=== PATIENT | female | born 1935 | race Caucasian/White ===

== ENCOUNTER 2017-04-27 18:07 | Observation (INO) | payer MEDICARE, BC ==
--- NOTE | 2017-04-27 18:55 | EDM.PDOC ---
ED HPI GENERAL MEDICAL PROBLEM - General Chief Complaint: General Stated Complaint: Low potassium Time Seen by Provider: 04/27/17 18:28 Source of Information: Reports: Patient History Limitations: Reports: No Limitations - History of Present Illness INITIAL COMMENTS - FREE TEXT/NARRATIVE: Radha is an 82 yo female who presents to the ER, accompanied by her daughter, with concerns of a low potassium. She states she had laboratory work by Dr. Bearden, her diabetic specialist today and he called stating her potassium was really low and she needed to go to the ER. She states she is feeling well and was shocked when he told her she needed to go to the ER. She currently takes potassium twice a day. She admits over the last month or so she has been seeing a audit analyst and she is taking Lasix a couple times a day as well. Her daughter admits up until seeing nephrology she would never take her water pill because of having to void and incontinence all the time. - Related Data Allergies Allergy/AdvReac Type Severity Reaction Status Date / Time codeine Allergy Hallucinati Verified 01/09/15 12:16 ons cyclobenzaprine HCl Allergy Cannot Verified 01/09/15 12:16 [From Flexeril] Remember fentanyl Allergy Cannot Verified 01/09/15 12:16 Remember hydrocodone Allergy Hallucinati Verified 01/09/15 12:16 ons oxycodone Allergy Hallucinati Verified 01/09/15 12:16 ons penicillin Allergy Hives Verified 01/09/15 12:16 venlafaxine [From Effexor] Allergy Confusion Verified 04/27/17 18:17 Home Meds: Home Meds Aspirin 1 tab PO ASDIRECTED 12/29/14 [History] Cholecalciferol (Vitamin D3) [Vitamin D3] 1 tab PO DAILY 12/29/14 [History] Clopidogrel Bisulfate [Clopidogrel] 1 tab PO DAILY 12/29/14 [History] Clorazepate [Clorazepate Dipotassium] 0.5 - 1 tab PO ASDIRECTED PRN 12/29/14 [ History] Febuxostat [Uloric] 1 tab PO DAILY 12/29/14 [History] Furosemide 2 tab PO QAM 12/29/14 [History] Glucosamine [Glucosamine Sulfate] 1 tab PO DAILY 12/29/14 [History] Lovastatin 1 tab PO DAILY 12/29/14 [History] Lutein [Natural Lutein] 1 cap PO DAILY 12/29/14 [History] Metoprolol Tartrate [Lopressor] 1 tab PO BID 12/29/14 [History] Vitamin B Complex 1 tab PO DAILY 12/29/14 [History] buPROPion [buPROPion XL] 1 tab PO DAILY 12/29/14 [History] Metolazone 5 mg PO ASDIRECTED PRN 01/09/15 [History] Pregabalin [Lyrica] 50 mg PO BID 01/09/15 [History] Insulin Aspart Protam & Aspart [Novolog Mix 70-30 Flexpen Syrn] 30 units SQ BIDPC #0 01/14/15 [Rx] Insulin Aspart [Novolog] 100 unit SQ TIDMEALS #3 ml 01/14/15 [Rx] Potassium Chloride [Klor-Con 10] 20 meq PO BIDMEALS #60 tab.er 01/14/15 [Rx] Past Medical History HEENT History: Reports: Impaired Vision Other HEENT History: glasses, 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 Cardiovascular History: Reports: Heart Failure, High Cholesterol Gastrointestinal History: Reports: Other (See Below) Other Gastrointestinal History: constipation Genitourinary History: Reports: Urinary Incontinence CASH CHECKER History: Reports: Other OB/BYN History: hysterectomy Musculoskeletal History: Reports: Back Pain, Chronic Endocrine/Metabolic History: Reports: Diabetes, Type II Other Endocrine/Metabolic History: 41 BMI Other Dermatologic History: blotchy arms - Past Surgical History GI Surgical History: Reports: Appendectomy, Cholecystectomy, Colonoscopy Musculoskeletal Surgical History: Reports: Other (See Below) Other Musculoskeletal Surgeries/Procedures:: Screws/plates for degenerative disk disease Social & Family History - Family History Family Medical History: Noncontributory - Tobacco Use Smoking Status *Q: Unknown Ever Smoked Second Hand Smoke Exposure: No - Recreational Drug Use Recreational Drug Use: No ED ROS GENERAL - Review of Systems Review Of Systems: See Below Constitutional: Reports: Fatigue. Denies: Fever, Chills, Weakness HEENT: Reports: No Symptoms Respiratory: Denies: Shortness of Breath, Wheezing, Cough Cardiovascular: Reports: Edema. Denies: Chest Pain, Dyspnea on Exertion, Lightheadedness, Palpitations Endocrine: Reports: No Symptoms GI/Abdominal: Denies: Abdominal Pain, Constipation, Diarrhea, Decreased Appetite , Hematochezia, Nausea, Vomiting : Reports: Incontinence. Denies: Discharge, Frequency, Hematuria, Urgency Skin: Reports: No Symptoms Neurological: Denies: Dizziness, Headache, Numbness, Tingling, Weakness Psychiatric: Reports: No Symptoms ED EXAM, GENERAL - Physical Exam Exam: See Below Exam Limited By: No Limitations General Appearance: Alert, No Apparent Distress (sitting comfortably, having normal conversation ) Ears: Normal External Exam, Normal Canal, Hearing Grossly Normal, Normal TMs Nose: Normal Inspection, No Blood Throat/Mouth: Normal Inspection, Normal Teeth, Normal Gums, Normal Oropharynx, No Airway Compromise Head: Atraumatic, Normocephalic Neck: Normal Inspection, Supple Respiratory/Chest: No Respiratory Distress, Lungs Clear, Normal Breath Sounds, No Accessory Muscle Use Cardiovascular: Regular Rate, Rhythm, No Murmur GI/Abdominal: Normal Bowel Sounds, Soft, Non-Tender, No Distention, Other (obese ) Extremities: Pedal Edema (1+ bilaterally) Neurological: Alert, Oriented, Normal Cognition Psychiatric: Normal Affect, Normal Mood Skin Exam: Warm, Dry, Intact Course - Vital Signs Last Recorded V/S: Last Vital Signs Temp 97.5 F 04/27/17 18:08 Pulse 81 04/27/17 18:08 Resp 18 04/27/17 18:08 BP 204/58 H 04/27/17 18:08 Pulse Ox BP @1903 was 162/64 - Orders/Labs/Meds Orders: Active Orders 24 hr Category Date Time Status Patient Status Manage Transfer [TRANSFER] Routine ADT 04/27/17 19:06 Ordered Resuscitation Status Routine Resus Stat 04/27/17 19:06 Ordered Departure - Departure Time of Disposition: 18:59 Disposition: Refer to Observation Clinical Impression: Hypokalemia, Chronic kidney disease (CKD) - Discharge Information Forms: ED Department Discharge - Problem List & Annotations (1) Chronic kidney disease (CKD) SNOMED Code(s): 440735401 Code(s): N18.9 - CHRONIC KIDNEY DISEASE, UNSPECIFIED Status: Chronic Priority: High Current Visit: Yes Qualifiers: Chronic kidney disease stage: stage 4 (severe) Qualified Code(s): N18.4 - Chronic kidney disease, stage 4 (severe) (2) Hypokalemia SNOMED Code(s): 19639999 Code(s): E87.6 - HYPOKALEMIA Status: Acute Current Visit: Yes - Problem List Review Problem List Initiated/Reviewed/Updated: Yes - My Orders Last 24 Hours: My Active Orders 04/27/17 19:06 Patient Status Manage Transfer [TRANSFER] Routine Resuscitation Status Routine - Assessment/Plan Admission H&P: Please use this note as an admission H&P Last 24 Hours: My Active Orders 04/27/17 19:06 Patient Status Manage Transfer [TRANSFER] Routine Resuscitation Status Routine Plan: Consulted with Dr. Dudley and Sugey Casiano in regards to Radha's condition. Will admit to Dr. Dudley's services under observation secondary to her Potassium level , which Dr. Dudley was in agreement. Will hold Lasix tonight and repeat P8 in am. Will proceed with magnesium level tonight as well.
[2017-04-27] MEDS ORDERED: Acetaminophen 325 MG Tab PO PRN (19:22)
[2017-04-27] MEDS ORDERED: Enoxaparin 30 MG/0.3 ML Syringe SUBCUT SCH (20:00)
[2017-04-27] MEDS: Metoprolol Tartrate 25 MG Tab PO SCH (21:48)
[2017-04-27] MEDS: Pregabalin 50 MG Cap PO SCH (21:48)
[2017-04-27] MEDS ORDERED: Potassium Chloride 40 MEQ in Premix Bag 1 BAG IV ONE (22:16)
[2017-04-27] MEDS ORDERED: Sodium Chloride 0.9% 1,000 ML IV SCH (22:30)
[2017-04-27] MEDS ORDERED: Insulin Detemir 100 Units/ML 3 ML Pen SUBCUT SCH (23:00)
[2017-04-28] MEDS ORDERED: Insuln Aspart Prot/Insulin Aspart 100 Units/ML 3 ML FlexPen SUBCUT SCH (07:30)
[2017-04-28] MEDS ORDERED: Aspirin 81 MG Tab.Chew PO SCH (08:00)
[2017-04-28] MEDS ORDERED: Insulin Aspart 100 Units/ML 3 ML Pen SUBCUT SCH (08:00)
[2017-04-28] MEDS ORDERED: Clopidogrel 75 MG Tab PO SCH (08:00)
[2017-04-28] MEDS ORDERED: buPROPion 150 MG Tab.ER PO SCH (08:00)
[2017-04-28] MEDS ORDERED: Potassium Chloride 10 MEQ Tab.ER PO SCH ×2 (08:00)
[2017-04-28] MEDS ORDERED: Non-Formulary Medication 1 Each (Potassium Chloride [Potassium Chloride] 20 MEQ) PO SCH (08:00)
[2017-04-28 08:21] VITALS: BP 182/65
[2017-04-28] MEDS: Metoprolol Tartrate 25 MG Tab PO SCH (09:09)
[2017-04-28] MEDS: Pregabalin 50 MG Cap PO SCH (09:10)
--- NOTE | 2017-04-28 21:17 | PCM.PN ---
- General Info Date of Service: 04/28/17 Admission Dx/Problem (Free Text): hypokalemia Acute on chronic renal failure Functional Status: Reports: Pain Controlled, Tolerating Diet, Ambulating, Urinating - Review of Systems General: Denies: Fever, Weakness, Fatigue HEENT: Reports: No Symptoms Pulmonary: Denies: Shortness of Breath, Cough Cardiovascular: Reports: Edema. Denies: Chest Pain, Lightheadedness Gastrointestinal: Denies: Abdominal Pain, Nausea, Vomiting Genitourinary: Reports: Frequency Musculoskeletal: Reports: Back Pain (chronic in nature) Skin: Reports: No Symptoms Neurological: Reports: No Symptoms - Patient Data Vitals - Most Recent: Last Vital Signs Temp 96.5 F 04/28/17 08:00 Pulse 80 04/28/17 09:09 Resp 18 04/28/17 08:00 BP 182/65 H 04/28/17 09:09 Pulse Ox 94 L 04/28/17 08:00 Weight - Most Recent: 210 lb 15.718 oz I&O - Last 24 Hours: Intake & Output 04/28/17 04/28/17 04/28/17 06:59 14:59 22:59 Intake Total 200 Output Total 850 Balance -650 Lab Results Last 24 Hours: Laboratory Results - last 24 hr 04/27/17 04/28/17 04/28/17 Range/Units 20:02 02:45 07:00 Sodium 145 (136-145) mEq/L Potassium 3.5 D (3.5-5.0) mEq/L Chloride 105 (98-106) mEq/L Carbon Dioxide 34 H (21-32) mmol/L BUN 105 H* (7-18) mg/dL Creatinine 3.1 H* (0.6-1.0) mg/dL Est Cr Clr Drug Dosing 10.56 mL/min Estimated GFR (MDRD) 14 L (>=60) mL/min Glucose 211 H D (75-99) mg/dL POC Glucose 229 H (75-105) mg/dl Calcium 8.9 (8.4-10.1) mg/dL Urine Color Yellow (YELLOW) Urine Appearance Clear (CLEAR) Urine pH 6.0 (4.5-8.0) Ur Specific [place] 1.010 (1.003-1.020) Urine Protein Negative (NEGATIVE) mg/dL Urine Glucose (UA) 250 H (NEGATIVE) mg/dL Urine Ketones Negative (NEGATIVE) mg/dL Urine Occult Blood Negative (NEGATIVE) Urine Nitrite Negative (NEGATIVE) Urine Bilirubin Negative (NEGATIVE) Urine Urobilinogen 0.2 (0.2-1.0) EU/dL Ur Leukocyte Esterase Negative (NEGATIVE) Urine RBC Not seen (0-5) /HPF Urine WBC Not seen (0-5) /HPF Ur Squamous Epith Cells Occasional H (NOT SEEN) /HPF 04/28/17 Range/Units 07:47 Sodium (136-145) mEq/L Potassium (3.5-5.0) mEq/L Chloride (98-106) mEq/L Carbon Dioxide (21-32) mmol/L BUN (7-18) mg/dL Creatinine (0.6-1.0) mg/dL Est Cr Clr Drug Dosing mL/min Estimated GFR (MDRD) (>=60) mL/min Glucose (75-99) mg/dL POC Glucose 185 H (75-105) mg/dl Calcium (8.4-10.1) mg/dL Urine Color (YELLOW) Urine Appearance (CLEAR) Urine pH (4.5-8.0) Ur Specific [place] (1.003-1.020) Urine Protein (NEGATIVE) mg/dL Urine Glucose (UA) (NEGATIVE) mg/dL Urine Ketones (NEGATIVE) mg/dL Urine Occult Blood (NEGATIVE) Urine Nitrite (NEGATIVE) Urine Bilirubin (NEGATIVE) Urine Urobilinogen (0.2-1.0) EU/dL Ur Leukocyte Esterase (NEGATIVE) Urine RBC (0-5) /HPF Urine WBC (0-5) /HPF Ur Squamous Epith Cells (NOT SEEN) /HPF Med Orders - Current: Current Medications Discontinued Medications Acetaminophen (Tylenol) 650 mg PO Q4H PRN PRN Reason: Pain (Mild 1-3)/fever Aspirin (Aspirin) 81 mg PO DAILY [facility] Last Admin: 04/28/17 09:09 Dose: 81 mg Bupropion HCl (Wellbutrin Xl) 150 mg PO DAILY [facility] Last Admin: 04/28/17 09:11 Dose: 150 mg Clopidogrel Bisulfate (Plavix) 75 mg PO DAILY [facility] Last Admin: 04/28/17 09:11 Dose: 75 mg Clorazepate Dipotassium (Clorazepate Dipotassium) 1 - 2 mg PO BEDTIME PRN PRN Reason: Anxiety Enoxaparin Sodium (Lovenox) 30 mg SUBCUT Q24H [facility] Last Admin: 04/27/17 21:49 Dose: 30 mg Potassium Chloride 40 meq/ (Sodium Chloride) 1,020 mls @ 100 mls/hr IV ASDIRECTED [facility] Potassium Chloride 40 meq/ (Premix) 100 mls @ 25 mls/hr IV ONETIME ONE Stop: 04/28/17 02:15 Last Admin: 04/27/17 22:58 Dose: 25 mls/hr Sodium Chloride (Normal Saline) 1,000 mls @ 100 mls/hr IV ASDIRECTED [facility] Last Admin: 04/27/17 22:57 Dose: 100 mls/hr Insulin Aspart (Novolog) 0 unit SUBCUT TIDMEALS [facility] PRN Reason: Protocol Last Admin: 04/28/17 08:04 Dose: 2 units Insulin Aspart (Novolog Mix 70-30) 30 unit SUBCUT BIDAC [facility] Insulin Detemir (Levemir) 25 unit SUBCUT BEDTIME [facility] Last Admin: 04/27/17 23:12 Dose: 25 units Metoprolol Tartrate (Lopressor) 25 mg PO BID [facility] Last Admin: 04/28/17 09:09 Dose: 25 mg Non-Formulary Medication (Potassium Chloride [Potassium Chloride]) 20 meq PO DAILY [facility] Potassium Chloride (Klor-Con 10) 20 meq PO BIDMEALS [facility] Potassium Chloride (Klor-Con 10) 20 meq PO DAILY [facility] Last Admin: 04/28/17 09:09 Dose: 20 meq Pregabalin (Lyrica) 50 mg PO BID [facility] Last Admin: 04/28/17 09:10 Dose: 50 mg - Exam General: Alert, Oriented HEENT: Mucous Membr. Moist/[place] Neck: Supple Lungs: Clear to Auscultation, Normal Respiratory Effort Cardiovascular: Regular Rate, Regular Rhythm GI/Abdominal Exam: Normal Bowel Sounds, Soft, Non-Tender Extremities: Pedal Edema (2+) Skin: Warm, Dry Neurological: No New Focal Deficit - Problem List & Annotations (1) Edema SNOMED Code(s): 657527081 Code(s): R60.9 - EDEMA, UNSPECIFIED Status: Acute Priority: High (2) Hypokalemia SNOMED Code(s): 60123194 Code(s): E87.6 - HYPOKALEMIA Status: Acute Priority: High (3) Chronic kidney disease (CKD) SNOMED Code(s): 132947251 Code(s): N18.9 - CHRONIC KIDNEY DISEASE, UNSPECIFIED Status: Acute Priority: High Qualifiers: Chronic kidney disease stage: stage 4 (severe) Qualified Code(s): N18.4 - Chronic kidney disease, stage 4 (severe) - Problem List Review Problem List Initiated/Reviewed/Updated: Yes - My Orders Last 24 Hours: My Active Orders 04/28/17 09:25 Ready for Discharge [RC] PER UNIT ROUTINE - Assessment Assessment:: Hypokalemia Acute on chronic kidney failure - Plan Plan:: Patient feeling good today. States "never had any symptoms yesterday but Dr. Bearden was concerned about her potassium". Patient has had her meds prepackaged now and admits that she has been more compliant with her Lasix, has had a big improvement of the swelling in her legs. However, her potassium has dropped and her creatinine has increased. She denies having any shortness of breath and chest pain. Patient has long history of edema, not elevating her legs, not being compliant with all meds. This has improved due to having her meds packaged by the pharmacy. She is unable to elevate her legs due to back pain. Was admitted and given IV fluids with potassium 40 meq bump. Potassium improved this am to 3.5. Creatinine improved mildly to 3.1.
--- NOTE | 2017-04-28 21:53 | PCM.DCSUM1 ---
Discharge Summary - Hospital Course Free Text/Narrative:: Patient had labs yesterday for her appointment with Dr. Bearden on Wednesday and he called as he "was concerned about her potassium". Patient has had her meds prepackaged now and admits that she has been more compliant with her Lasix, has had a big improvement of the swelling in her legs. However, her potassium has dropped and her creatinine has increased. She denies having any shortness of breath and chest pain. Patient has long history of edema, not elevating her legs, not being compliant with all meds. This has improved due to having her meds packaged by the pharmacy. She is unable to elevate her legs due to back pain. Was admitted and given IV fluids with potassium 40 meq bump. - Discharge Data Discharge Date: 04/28/17 Discharge Disposition: Home, Self-Care 01 Condition: Fair - Discharge Diagnosis/Problem(s) (1) Edema SNOMED Code(s): 000478569 ICD Code: R60.9 - EDEMA, UNSPECIFIED Status: Acute Priority: High (2) Hypokalemia SNOMED Code(s): 81359959 ICD Code: E87.6 - HYPOKALEMIA Status: Acute Priority: High (3) Chronic kidney disease (CKD) SNOMED Code(s): 063934718 ICD Code: N18.9 - CHRONIC KIDNEY DISEASE, UNSPECIFIED Status: Acute Priority: High Qualifiers: Chronic kidney disease stage: stage 4 (severe) Qualified Code(s): N18.4 - Chronic kidney disease, stage 4 (severe) - Patient Summary/Data Complications: none Hospital Course: Patient feeling good today. States "never really had any symptoms" or any changes with the low potassium or increase in creatinine. She was given IV fluids with potassium bump overnight. Has had significant improvement of her edema since she has been compliant with her medications and taking her Lasix twice a day in addition to the metolazone. Patient is unable to lie down or elevate her legs due to back pain so she has a chronic concern with edema. Labs this am show stable potassium now at 3.5. Creatinine improved slightly at 3.1. We will discharge her home on Lasix 80 mg in am, hold the afternoon dose. Hold her Metolazone for now. Follow up in one week with repeat labs. Encouraged her to still see Dr. Bearden on Wednesday for her diabetes. - Patient Instructions Diet: Diabetic Diet Activity: As Tolerated - Discharge Plan Prescriptions/Med Rec: Insulin Glarg,Human.Rec.Analog [LantUS Solostar] 25 units SUBCUT BEDTIME #30 pen Home Medications: Home Meds Aspirin 1 tab PO ASDIRECTED 12/29/14 [History] Clopidogrel Bisulfate [Clopidogrel] 1 tab PO DAILY 12/29/14 [History] Clorazepate [Clorazepate Dipotassium] 0.5 - 1 tab PO ASDIRECTED PRN 12/29/14 [ History] Febuxostat [Uloric] 80 mg PO DAILY 12/29/14 [History] Furosemide 80 mg PO QAM 12/29/14 [History] Lovastatin 1 tab PO DAILY 12/29/14 [History] Lutein [Natural Lutein] 2 tab PO DAILY 12/29/14 [History] Metoprolol Tartrate [Lopressor] 1 tab PO BID 12/29/14 [History] Vitamin B Complex 1 tab PO DAILY 12/29/14 [History] buPROPion [buPROPion XL] 1 tab PO DAILY 12/29/14 [History] Pregabalin [Lyrica] 50 mg PO BEDTIME 01/09/15 [History] Insulin Aspart [Novolog Flexpen] 100 unit SQ TIDMEALS #3 ml 01/14/15 [Rx] Acetaminophen [Tylenol Arthritis] 650 mg PO BID 04/28/17 [History] Cholecalciferol (Vitamin D3) [Vitamin D3] 2,000 unit PO DAILY 04/28/17 [History] Doxazosin [Cardura] 2 mg PO BEDTIME 04/28/17 [History] Insulin Glarg,Human.Rec.Analog [LantUS Solostar] 25 units SUBCUT BEDTIME #30 pen 04/28/17 [Rx] Potassium Chloride 20 meq PO BID #60 04/28/17 [Rx] Sennosides/Docusate Sodium [Stool Softener-Laxative Tablet] 1 each PO BEDTIME [History] hydrALAZINE HCl [Hydralazine HCl] 50 mg PO BID 04/28/17 [History] Forms: ED Department Discharge Referrals: Candace Casiano PA [Primary Care Provider] - (Follow up in one week. Lab prior to appointment) - Discharge Summary/Plan Comment DC Time >30 min.: No Discharge Summary/Plan Comment: Discharge home. Decrease Lasix to 80 mg daily. Hold Metolazone. Increase potassium BID. Repeat labs in one week with follow up appointment. - General Info Date of Service: 04/28/17 Admission Dx/Problem (Free Text: hypokalemia Acute on chronic renal failure Functional Status: Reports: Pain Controlled, Tolerating Diet, Ambulating - Review of Systems General: Denies: Fever, Weakness, Fatigue HEENT: Reports: No Symptoms Pulmonary: Denies: Shortness of Breath, Wheezing Cardiovascular: Reports: Edema. Denies: Chest Pain, Lightheadedness Gastrointestinal: Denies: Abdominal Pain, Nausea, Vomiting Genitourinary: Reports: No Symptoms Musculoskeletal: Reports: Back Pain Skin: Reports: No Symptoms Neurological: Reports: No Symptoms - Patient Data Vitals - Most Recent: Last Vital Signs Temp 96.5 F 04/28/17 08:00 Pulse 80 04/28/17 09:09 Resp 18 04/28/17 08:00 BP 182/65 H 04/28/17 09:09 Pulse Ox 94 L 04/28/17 08:00 Weight - Most Recent: 210 lb 15.718 oz I&O - Last 24 hours: Intake & Output 04/28/17 04/28/17 04/28/17 06:59 14:59 22:59 Intake Total 200 Output Total 850 Balance -650 Lab Results - Last 24 hrs: Laboratory Results - last 24 hr 04/27/17 04/28/17 04/28/17 Range/Units 20:02 02:45 07:00 Sodium 145 (136-145) mEq/L Potassium 3.5 D (3.5-5.0) mEq/L Chloride 105 (98-106) mEq/L Carbon Dioxide 34 H (21-32) mmol/L BUN 105 H* (7-18) mg/dL Creatinine 3.1 H* (0.6-1.0) mg/dL Est Cr Clr Drug Dosing 10.56 mL/min Estimated GFR (MDRD) 14 L (>=60) mL/min Glucose 211 H D (75-99) mg/dL POC Glucose 229 H (75-105) mg/dl Calcium 8.9 (8.4-10.1) mg/dL Urine Color Yellow (YELLOW) Urine Appearance Clear (CLEAR) Urine pH 6.0 (4.5-8.0) Ur Specific [place] 1.010 (1.003-1.020) Urine Protein Negative (NEGATIVE) mg/dL Urine Glucose (UA) 250 H (NEGATIVE) mg/dL Urine Ketones Negative (NEGATIVE) mg/dL Urine Occult Blood Negative (NEGATIVE) Urine Nitrite Negative (NEGATIVE) Urine Bilirubin Negative (NEGATIVE) Urine Urobilinogen 0.2 (0.2-1.0) EU/dL Ur Leukocyte Esterase Negative (NEGATIVE) Urine RBC Not seen (0-5) /HPF Urine WBC Not seen (0-5) /HPF Ur Squamous Epith Cells Occasional H (NOT SEEN) /HPF 04/28/17 Range/Units 07:47 Sodium (136-145) mEq/L Potassium (3.5-5.0) mEq/L Chloride (98-106) mEq/L Carbon Dioxide (21-32) mmol/L BUN (7-18) mg/dL Creatinine (0.6-1.0) mg/dL Est Cr Clr Drug Dosing mL/min Estimated GFR (MDRD) (>=60) mL/min Glucose (75-99) mg/dL POC Glucose 185 H (75-105) mg/dl Calcium (8.4-10.1) mg/dL Urine Color (YELLOW) Urine Appearance (CLEAR) Urine pH (4.5-8.0) Ur Specific [place] (1.003-1.020) Urine Protein (NEGATIVE) mg/dL Urine Glucose (UA) (NEGATIVE) mg/dL Urine Ketones (NEGATIVE) mg/dL Urine Occult Blood (NEGATIVE) Urine Nitrite (NEGATIVE) Urine Bilirubin (NEGATIVE) Urine Urobilinogen (0.2-1.0) EU/dL Ur Leukocyte Esterase (NEGATIVE) Urine RBC (0-5) /HPF Urine WBC (0-5) /HPF Ur Squamous Epith Cells (NOT SEEN) /HPF Med Orders - Current: Current Medications Discontinued Medications Acetaminophen (Tylenol) 650 mg PO Q4H PRN PRN Reason: Pain (Mild 1-3)/fever Aspirin (Aspirin) 81 mg PO DAILY [facility] Last Admin: 04/28/17 09:09 Dose: 81 mg Bupropion HCl (Wellbutrin Xl) 150 mg PO DAILY [facility] Last Admin: 04/28/17 09:11 Dose: 150 mg Clopidogrel Bisulfate (Plavix) 75 mg PO DAILY [facility] Last Admin: 04/28/17 09:11 Dose: 75 mg Clorazepate Dipotassium (Clorazepate Dipotassium) 1 - 2 mg PO BEDTIME PRN PRN Reason: Anxiety Enoxaparin Sodium (Lovenox) 30 mg SUBCUT Q24H [facility] Last Admin: 04/27/17 21:49 Dose: 30 mg Potassium Chloride 40 meq/ (Sodium Chloride) 1,020 mls @ 100 mls/hr IV ASDIRECTED [facility] Potassium Chloride 40 meq/ (Premix) 100 mls @ 25 mls/hr IV ONETIME ONE Stop: 04/28/17 02:15 Last Admin: 04/27/17 22:58 Dose: 25 mls/hr Sodium Chloride (Normal Saline) 1,000 mls @ 100 mls/hr IV ASDIRECTED [facility] Last Admin: 04/27/17 22:57 Dose: 100 mls/hr Insulin Aspart (Novolog) 0 unit SUBCUT TIDMEALS [facility] PRN Reason: Protocol Last Admin: 04/28/17 08:04 Dose: 2 units Insulin Aspart (Novolog Mix 70-30) 30 unit SUBCUT BIDAC [facility] Insulin Detemir (Levemir) 25 unit SUBCUT BEDTIME [facility] Last Admin: 04/27/17 23:12 Dose: 25 units Metoprolol Tartrate (Lopressor) 25 mg PO BID [facility] Last Admin: 04/28/17 09:09 Dose: 25 mg Non-Formulary Medication (Potassium Chloride [Potassium Chloride]) 20 meq PO DAILY [facility] Potassium Chloride (Klor-Con 10) 20 meq PO BIDMEALS [facility] Potassium Chloride (Klor-Con 10) 20 meq PO DAILY [facility] Last Admin: 04/28/17 09:09 Dose: 20 meq Pregabalin (Lyrica) 50 mg PO BID [facility] Last Admin: 04/28/17 09:10 Dose: 50 mg - Exam General: Reports: Alert, Oriented HEENT: Reports: Mucous Membr. Moist/[place] Neck: Reports: Supple Lungs: Reports: Clear to Auscultation, Normal Respiratory Effort Cardiovascular: Reports: Regular Rate, Regular Rhythm Extremities: Pedal Edema (2+) Skin: Reports: Warm, Dry Neurological: Reports: No New Focal Deficit *Q Meaningful Use (DIS) - VTE *Q VTE Criteria *Q: - Stroke *Q Stroke Criteria *Q: - AMI *Q AMI Criteria *Q:
== END 2017-04-28 11:30 | disposition home or self-care (01) ==
LOC: CC.ED 18:07 → CC.MS 19:19
PROVIDERS: ADMIT Physician Assistant Medical; ATTEND Family Medicine
DX: R60.9 Edema, unspecified (principal); E87.6 Hypokalemia; E78.00 Pure hypercholesterolemia, unspecified; E11.22 Type 2 diabetes mellitus with diabetic chronic kidney disease; N18.4 Chronic kidney disease, stage 4 (severe); Z79.82 Long term (current) use of aspirin; Z79.4 Long term (current) use of insulin; Z79.899 Other long term (current) drug therapy; Z88.0 Allergy status to penicillin; Z88.8 Allergy status to other drugs, medicaments and biological substances; E11.9 Type 2 diabetes mellitus without complications
CPT/HCPCS: 36415; 80048; 81001; 82962; 83036; 83735; 85025; 93005; 93010; 96361; 96365; 96366; 96372; 99217; 99220; A9270; G0378; J1650; J1815; J3480; J7030; 99285

== ENCOUNTER 2018-02-15 10:57 | Inpatient (IN) | payer MEDICARE, BC ==
[2018-02-15] MEDS ORDERED: Ondansetron 4 MG Tab.DIS PO PRN (11:14)
[2018-02-15] MEDS ORDERED: Sodium Chloride 0.9% 10 ML Syringe FLUSH PRN (11:14)
[2018-02-15] MEDS: Furosemide 40 MG/4 ML VIAL IVPUSH SCH ×2 (13:12→17:43)
[2018-02-15] MEDS: Enoxaparin 30 MG/0.3 ML Syringe SUBCUT SCH (13:12)
[2018-02-15] MEDS: Clindamycin Phosphate in D5W 300 MG in Premix Bag 1 BAG IV SCH ×4 (13:13→17:51)
[2018-02-15] MEDS: Insulin Aspart 100 Units/ML 3 ML Pen SUBCUT SCH (17:51)
[2018-02-15] MEDS: hydrALAZINE 25 MG Tab PO SCH (20:09)
[2018-02-15] MEDS: Doxazosin 2 MG Tab PO SCH (20:09)
[2018-02-15] MEDS: Potassium Chloride 10 MEQ Tab.ER PO SCH (20:09)
[2018-02-15] MEDS: Metoprolol Tartrate 25 MG Tab PO SCH (20:10)
[2018-02-15] MEDS: prednisoLONE Acetate 1% Ophth Susp 5 ML Bottle EYERT SCH (20:10)
[2018-02-15] MEDS: Pregabalin 50 MG Cap PO SCH (20:10)
[2018-02-15] MEDS: Latanoprost 0.005% Ophth Soln 2.5 ML Bottle EYERT SCH (20:47)
[2018-02-15] MEDS: Insulin Detemir 100 Units/ML 3 ML Pen SUBCUT SCH (20:47)
[2018-02-16] MEDS: Clindamycin Phosphate in D5W 300 MG in Premix Bag 1 BAG IV SCH ×8 (00:11→18:27)
[2018-02-16] MEDS: Acetaminophen 325 MG Tab PO PRN (00:13)
[2018-02-16] MEDS: hydrALAZINE 25 MG Tab PO SCH ×2 (07:49→19:50)
[2018-02-16] MEDS: Metoprolol Tartrate 25 MG Tab PO SCH ×2 (07:49→19:51)
[2018-02-16] MEDS: Clopidogrel 75 MG Tab PO SCH (07:50)
[2018-02-16] MEDS: Potassium Chloride 10 MEQ Tab.ER PO SCH ×2 (07:50→19:50)
[2018-02-16] MEDS: Isosorbide Mononitrate 30 MG Tab.ER PO SCH (07:50)
[2018-02-16] MEDS: Allopurinol 100 MG Tab PO SCH (07:50)
[2018-02-16] MEDS: buPROPion 150 MG Tab.ER PO SCH (07:51)
[2018-02-16] MEDS: Cholecalciferol (Vitamin D3) 1,000 Unit Tab PO SCH (07:51)
[2018-02-16] MEDS: Aspirin 81 MG Tab.Chew PO SCH (07:51)
[2018-02-16] MEDS: Insulin Aspart 100 Units/ML 3 ML Pen SUBCUT SCH ×3 (07:53→17:37)
[2018-02-16] MEDS: Furosemide 40 MG/4 ML VIAL IVPUSH SCH ×2 (07:53→17:00)
[2018-02-16] MEDS: prednisoLONE Acetate 1% Ophth Susp 5 ML Bottle EYERT SCH ×3 (07:57→19:54)
[2018-02-16] MEDS: Polyethylene Glycol 3350 Powder 17 GM Packet PO SCH (07:59)
[2018-02-16] MEDS ORDERED: FEBUXOSTAT 80 MG PO SCH (08:00)
[2018-02-16] MEDS: TIMOLOL EYERT SCH ×4 (09:23→20:15)
[2018-02-16] MEDS: CYCLOPENTOLATE 1% EYERT SCH ×4 (09:23→19:45)
[2018-02-16] MEDS: BRIMONIDINE EYERT SCH ×4 (09:23→20:15)
--- NOTE | 2018-02-16 10:49 | PCM.PN ---
- General Info Date of Service: 02/16/18 Admission Dx/Problem (Free Text): Cellulitis of Lower Extremities Pedal Edema Functional Status: Reports: Pain Controlled, Tolerating Diet, Ambulating, Urinating - Review of Systems General: Reports: Weakness, Fatigue. Denies: Fever HEENT: Reports: No Symptoms Pulmonary: Denies: Shortness of Breath, Cough Cardiovascular: Reports: Edema. Denies: Chest Pain, Lightheadedness Gastrointestinal: Denies: Abdominal Pain, Nausea, Vomiting Genitourinary: Reports: No Symptoms Musculoskeletal: Reports: Leg Pain Skin: Reports: Other (legs wrapped with tom bandages.) - Patient Data Vitals - Most Recent: Last Vital Signs Temp 97.5 F 02/16/18 08:00 Pulse 78 02/16/18 08:00 Resp 20 02/16/18 08:00 BP 168/47 H 02/16/18 08:00 Pulse Ox 96 02/16/18 08:00 Weight - Most Recent: 224 lb 3.362 oz I&O - Last 24 Hours: Intake & Output 02/15/18 02/16/18 02/16/18 22:59 06:59 14:59 Intake Total 50 50 Balance 50 50 Lab Results Last 24 Hours: Laboratory Results - last 24 hr 02/15/18 02/15/18 02/15/18 Range/Units 11:35 11:35 11:42 WBC 7.1 (5.0-10.0) 10^3/uL RBC 3.23 L (4.00-5.50) 10^6/uL Hgb 9.9 L (12.0-16.0) g/dL Hct 31.6 L (37.0-47.0) % MCV 97.8 H (82.0-94.0) fL MCH 30.7 (27.0-32.0) pg MCHC 31.3 L (33.0-38.0) g/dL RDW Coeff of Elle 13.5 (11.0-15.0) % Plt Count 174 (150-400) 10^3/uL Neut % (Auto) 67.1 (35-85) % Lymph % (Auto) 19.1 (10-55) % [place] % (Auto) 11.2 (0-16) % Eos % (Auto) 2.5 (0-5) % Baso % (Auto) 0.1 (0-3) % Neut # (Auto) 4.73 (1.80-7.00) 10^3/uL Lymph # (Auto) 1.35 (1.00-4.80) 10^3/uL [place] # (Auto) 0.79 (0.00-0.80) 10^3/uL Eos # (Auto) 0.18 (0.00-0.45) 10^3/uL Baso # (Auto) 0.01 10^3/uL Sodium 143 (136-145) mEq/L Potassium 3.4 L (3.5-5.0) mEq/L Chloride 104 (98-106) mEq/L Carbon Dioxide 30 (21-32) mmol/L BUN 69 H (7-18) mg/dL Creatinine 2.6 H* (0.6-1.0) mg/dL Est Cr Clr Drug Dosing 11.98 mL/min Estimated GFR (MDRD) 18 L (>=60) mL/min Glucose 45 L D (75-99) mg/dL POC Glucose 38 L* (75-105) mg/dl Calcium 8.7 (8.4-10.1) mg/dL C-Reactive Protein 3.6 H (0.2-0.8) mg/dL NT-Pro-B Natriuret Pep 1198 H (0-1000) pg/mL 02/15/18 02/15/18 02/15/18 Range/Units 12:16 17:15 20:28 WBC (5.0-10.0) 10^3/uL RBC (4.00-5.50) 10^6/uL Hgb (12.0-16.0) g/dL Hct (37.0-47.0) % MCV (82.0-94.0) fL MCH (27.0-32.0) pg MCHC (33.0-38.0) g/dL RDW Coeff of Elle (11.0-15.0) % Plt Count (150-400) 10^3/uL Neut % (Auto) (35-85) % Lymph % (Auto) (10-55) % [place] % (Auto) (0-16) % Eos % (Auto) (0-5) % Baso % (Auto) (0-3) % Neut # (Auto) (1.80-7.00) 10^3/uL Lymph # (Auto) (1.00-4.80) 10^3/uL [place] # (Auto) (0.00-0.80) 10^3/uL Eos # (Auto) (0.00-0.45) 10^3/uL Baso # (Auto) 10^3/uL Sodium (136-145) mEq/L Potassium (3.5-5.0) mEq/L Chloride (98-106) mEq/L Carbon Dioxide (21-32) mmol/L BUN (7-18) mg/dL Creatinine (0.6-1.0) mg/dL Est Cr Clr Drug Dosing mL/min Estimated GFR (MDRD) (>=60) mL/min Glucose (75-99) mg/dL POC Glucose 80 211 H 232 H (75-105) mg/dl Calcium (8.4-10.1) mg/dL C-Reactive Protein (0.2-0.8) mg/dL NT-Pro-B Natriuret Pep (0-1000) pg/mL 02/16/18 02/16/18 02/16/18 Range/Units 07:34 08:53 08:53 WBC 5.7 (5.0-10.0) 10^3/uL RBC 3.22 L (4.00-5.50) 10^6/uL Hgb 9.9 L (12.0-16.0) g/dL Hct 32.1 L (37.0-47.0) % MCV 99.7 H (82.0-94.0) fL MCH 30.7 (27.0-32.0) pg MCHC 30.8 L (33.0-38.0) g/dL RDW Coeff of Elle 13.4 (11.0-15.0) % Plt Count 171 (150-400) 10^3/uL Neut % (Auto) 66.9 (35-85) % Lymph % (Auto) 20.4 (10-55) % [place] % (Auto) 9.5 (0-16) % Eos % (Auto) 3.0 (0-5) % Baso % (Auto) 0.2 (0-3) % Neut # (Auto) 3.81 (1.80-7.00) 10^3/uL Lymph # (Auto) 1.16 (1.00-4.80) 10^3/uL [place] # (Auto) 0.54 (0.00-0.80) 10^3/uL Eos # (Auto) 0.17 (0.00-0.45) 10^3/uL Baso # (Auto) 0.01 10^3/uL Sodium 143 (136-145) mEq/L Potassium 4.1 D (3.5-5.0) mEq/L Chloride 104 (98-106) mEq/L Carbon Dioxide 30 (21-32) mmol/L BUN 65 H (7-18) mg/dL Creatinine 2.8 H* (0.6-1.0) mg/dL Est Cr Clr Drug Dosing 11.13 mL/min Estimated GFR (MDRD) 16 L (>=60) mL/min Glucose 181 H D (75-99) mg/dL POC Glucose 153 H (75-105) mg/dl Calcium 8.4 (8.4-10.1) mg/dL C-Reactive Protein 3.9 H (0.2-0.8) mg/dL NT-Pro-B Natriuret Pep (0-1000) pg/mL Attila Results Last 24 Hours: Microbiology 02/15/18 15:15 Wound Culture - Preliminary Ankle, Left Gram Positive Cocci Gram Positive Cocci#2 Gram Negative Rods Med Orders - Current: Current Medications Acetaminophen (Tylenol) 650 mg PO Q4H PRN PRN Reason: Pain (Mild 1-3)/fever Last Admin: 02/16/18 00:13 Dose: 650 mg Allopurinol (Zyloprim) 100 mg PO DAILY [facility] Last Admin: 02/16/18 07:50 Dose: 100 mg Aspirin (Aspirin) 81 mg PO DAILY [facility] Last Admin: 02/16/18 07:51 Dose: 81 mg Bupropion HCl (Wellbutrin Xl) 150 mg PO DAILY [facility] Last Admin: 02/16/18 07:51 Dose: 150 mg Cholecalciferol (Vitamin D3) 2,000 units PO DAILY [facility] Last Admin: 02/16/18 07:51 Dose: 2,000 units Clopidogrel Bisulfate (Plavix) 75 mg PO DAILY [facility] Last Admin: 02/16/18 07:50 Dose: 75 mg Doxazosin Mesylate (Cardura) 2 mg PO BEDTIME [facility] Last Admin: 02/15/18 20:09 Dose: 2 mg Enoxaparin Sodium (Lovenox) 30 mg SUBCUT Q24H [facility] Last Admin: 02/15/18 13:12 Dose: 30 mg Furosemide (Lasix) 40 mg IVPUSH 0800,1600 [facility] Last Admin: 02/16/18 07:53 Dose: 40 mg Hydralazine HCl (Apresoline) 100 mg PO BID [facility] Last Admin: 02/16/18 07:49 Dose: 100 mg Clindamycin Phosphate 300 mg/ (Premix) 50 mls @ 100 mls/hr IV Q6H [facility] Last Admin: 02/16/18 05:57 Dose: 100 mls/hr Insulin Aspart (Novolog) 0 unit SUBCUT TIDMEALS [facility]; Protocol Last Admin: 02/16/18 07:53 Dose: 2 units Insulin Detemir (Levemir) 25 unit SUBCUT BEDTIME [facility] Last Admin: 02/15/18 20:47 Dose: 25 units Isosorbide Mononitrate (Imdur) 30 mg PO DAILY [facility] Last Admin: 02/16/18 07:50 Dose: 30 mg Latanoprost (Xalatan 0.005% Ophth Soln) 0 ml EYERT BEDTIME [facility] Last Admin: 02/15/18 20:47 Dose: 1 drop Metoprolol Tartrate (Lopressor) 25 mg PO BID [facility] Last Admin: 02/16/18 07:49 Dose: 25 mg Brimonidine/Timolol [Combigan] 0.2%/0.5% Ophth Own Med 1 drop EYERT TID [facility] Last Admin: 02/16/18 09:23 Dose: 1 drop Cyclopentolate 1% (Ophth Own Med ) 1 drop EYERT TID [facility] Last Admin: 02/16/18 09:23 Dose: 1 drop Ondansetron HCl (Zofran Odt) 4 mg PO Q4H PRN PRN Reason: nausea, able to take PO Polyethylene Glycol (Miralax) 17 gm PO DAILY [facility] Last Admin: 02/16/18 07:59 Dose: 17 gm Potassium Chloride (Klor-Con 10) 20 meq PO BID [facility] Last Admin: 02/16/18 07:50 Dose: 20 meq Prednisolone Acetate (Pred Forte 1% Ophth Susp) 0 ml EYERT TID [facility] Last Admin: 02/16/18 07:57 Dose: 1 drop Pregabalin (Lyrica) 50 mg PO BEDTIME [facility] Last Admin: 02/15/18 20:10 Dose: 50 mg Senna/Docusate Sodium (Senna Plus) 1 tab PO BEDTIME [facility] Last Admin: 02/15/18 20:09 Dose: 1 tab Simvastatin (Zocor) 20 mg PO BEDTIME [facility] Sodium Chloride (Saline Flush) 10 ml FLUSH ASDIRECTED PRN PRN Reason: Keep Vein Open Discontinued Medications Non-Formulary Medication (Acetaminophen [Tylenol Arthritis]) 650 mg PO BID [facility] - Exam General: Alert, Oriented, Cooperative HEENT: Mucous Membr. Moist/[place] Neck: Supple Lungs: Clear to Auscultation, Normal Respiratory Effort Cardiovascular: Regular Rate, Regular Rhythm GI/Abdominal Exam: Normal Bowel Sounds, Soft, Non-Tender Extremities: Pedal Edema (Patient's edema to lower leg and foot is improved since yesterday but has increased edema above the tom bandage point at midcalf. She continues to have redness and oozing from the open lesions. ) Neurological: No New Focal Deficit - Problem List & Annotations (1) Chronic kidney disease (CKD) SNOMED Code(s): 913758908 Code(s): N18.9 - CHRONIC KIDNEY DISEASE, UNSPECIFIED Status: Acute Priority: High Current Visit: Yes (2) Edema SNOMED Code(s): 369731405, 223236440 Code(s): R60.9 - EDEMA, UNSPECIFIED Status: Acute Priority: High Current Visit: Yes (3) Cellulitis of lower extremity SNOMED Code(s): 722965120 Code(s): L03.119 - CELLULITIS OF UNSPECIFIED PART OF LIMB Status: Suspected Priority: High Current Visit: Yes Qualifiers: Laterality: left Qualified Code(s): L03.116 - Cellulitis of left lower limb - Problem List Review Problem List Initiated/Reviewed/Updated: Yes - My Orders Last 24 Hours: My Active Orders 02/15/18 11:14 Patient Status [ADT] Routine Blood Glucose Check, Bedside [RC] 0730,1130,1730,2100 Height and Weight [RC] 0600 Oxygen Therapy [RC] .PRN Up With Assistance [RC] .PRN Vital Signs [RC] 0000,0400,0800,1200,1600,2000 PT Evaluation and Treatment [CONS] Routine Acetaminophen [Tylenol] 650 mg PO Q4H PRN Ondansetron [Zofran ODT] 4 mg PO Q4H PRN Sodium Chloride 0.9% [Saline Flush] 10 ml FLUSH ASDIRECTED PRN Saline Lock Insert [OM.PC] Routine Resuscitation Status Routine 02/15/18 11:30 Furosemide [Lasix] 40 mg IVPUSH 0800,1600 02/15/18 12:00 Clindamycin Phosphate in D5W [Cleocin in D5W] 300 mg Premix Bag 1 bag IV Q6H Enoxaparin [Lovenox] 30 mg SUBCUT Q24H 02/15/18 15:15 CULTURE WOUND [RM] Stat 02/15/18 17:30 Insulin Aspart [NovoLOG] See Protocol SUBCUT TIDMEALS 02/15/18 20:00 Brimonidine/Timolol [Combigan 0.2%/0.5% Ophth Soln] 1 drop EYERT TID Cyclopentolate HCl [Cyclopentolate HCl] 1 drop EYERT TID Docusate Sodium/Sennosides [Senna Plus] 1 tab PO BEDTIME Doxazosin [Cardura] 2 mg PO BEDTIME Insulin Detemir [Levemir] 25 unit SUBCUT BEDTIME Latanoprost [Xalatan 0.005% Ophth Soln] 0 ml EYERT BEDTIME Metoprolol Tartrate [Lopressor] 25 mg PO BID Potassium Chloride [Klor-Con 10] 20 meq PO BID Pregabalin [Lyrica] 50 mg PO BEDTIME hydrALAZINE [Apresoline] 100 mg PO BID prednisoLONE acetate [Pred Forte 1% Ophth Susp] 0 ml EYERT TID 02/15/18 Lunch 2 Gram Sodium Diet [DIET] 02/16/18 08:00 Allopurinol [Zyloprim] 100 mg PO DAILY Aspirin 81 mg PO DAILY Cholecalciferol (Vitamin D3) [Vitamin D3] 2,000 units PO DAILY Clopidogrel [Plavix] 75 mg PO DAILY Isosorbide Mononitrate [Imdur] 30 mg PO DAILY Polyethylene Glycol 3350 [MiraLAX] 17 gm PO DAILY buPROPion [Wellbutrin XL] 150 mg PO DAILY 02/16/18 20:00 Simvastatin [Zocor] 20 mg PO BEDTIME 02/17/18 05:11 BASIC METABOLIC PANEL,BMP [CHEM] DAILY C-REACTIVE PROTEIN [CHEM] DAILY 02/18/18 05:11 BASIC METABOLIC PANEL,BMP [CHEM] DAILY C-REACTIVE PROTEIN [CHEM] DAILY - Assessment Assessment:: Cellulitis of bilateral lower extremities Edema Chronic Kidney Failure. - Plan Plan:: Patient is up and resting in recliner. Has been willing to elevate her feet but she does not lay in the bed at all. Edema is improved in feet and ankle region but has more now above the level of the tom bandage to mid carvajal region. Still has redness and oozing from the open lesions. No fevers. Has been up and voiding more since IV Lasix given yesterday. Lung sounds are clear. Creatinine increased slightly to 2.8 from 2.6 yesterday. ProBNP was 1198 yesterday. WBC stable at 5.7. CRP 3.9. Will continue with IV Cleocin. Elevate legs. Suggest UNNA boots or higher wraps with the tom bandages. Encourage ambulation. Repeat labs in am.
[2018-02-16] MEDS: Non-Formulary Medication 1 Each (Acetaminophen [Tylenol Arthritis] 650 MG) PO SCH (11:30)
[2018-02-16] MEDS: Enoxaparin 30 MG/0.3 ML Syringe SUBCUT SCH (11:38)
[2018-02-16] MEDS: Pregabalin 50 MG Cap PO SCH (19:50)
[2018-02-16] MEDS: Doxazosin 2 MG Tab PO SCH (19:50)
[2018-02-16] MEDS: Simvastatin 20 MG Tab PO SCH (19:51)
[2018-02-16] MEDS: Insulin Detemir 100 Units/ML 3 ML Pen SUBCUT SCH (20:38)
[2018-02-16] MEDS: Latanoprost 0.005% Ophth Soln 2.5 ML Bottle EYERT SCH (20:38)
[2018-02-17] MEDS: Acetaminophen 325 MG Tab PO PRN ×2 (00:19→20:35)
[2018-02-17] MEDS: Clindamycin Phosphate in D5W 300 MG in Premix Bag 1 BAG IV SCH ×4 (00:19→05:38)
[2018-02-17] MEDS: Potassium Chloride 10 MEQ Tab.ER PO SCH ×2 (08:20→20:33)
[2018-02-17] MEDS: hydrALAZINE 25 MG Tab PO SCH ×2 (08:20→20:32)
[2018-02-17] MEDS: buPROPion 150 MG Tab.ER PO SCH (08:20)
[2018-02-17] MEDS: Clopidogrel 75 MG Tab PO SCH (08:20)
[2018-02-17] MEDS: Metoprolol Tartrate 25 MG Tab PO SCH ×2 (08:20→20:34)
[2018-02-17] MEDS: Cholecalciferol (Vitamin D3) 1,000 Unit Tab PO SCH (08:20)
[2018-02-17] MEDS: Allopurinol 100 MG Tab PO SCH (08:21)
[2018-02-17] MEDS: Aspirin 81 MG Tab.Chew PO SCH (08:21)
[2018-02-17] MEDS: Furosemide 40 MG/4 ML VIAL IVPUSH SCH ×2 (08:21→17:10)
[2018-02-17] MEDS: Isosorbide Mononitrate 30 MG Tab.ER PO SCH (08:21)
[2018-02-17] MEDS: Polyethylene Glycol 3350 Powder 17 GM Packet PO SCH (08:21)
[2018-02-17] MEDS: BRIMONIDINE EYERT SCH ×3 (08:22→20:10)
[2018-02-17] MEDS: TIMOLOL EYERT SCH ×3 (08:22→20:10)
[2018-02-17] MEDS: CYCLOPENTOLATE 1% EYERT SCH ×3 (08:22→20:00)
[2018-02-17] MEDS: prednisoLONE Acetate 1% Ophth Susp 5 ML Bottle EYERT SCH ×3 (08:23→20:25)
[2018-02-17] MEDS: Insulin Aspart 100 Units/ML 3 ML Pen SUBCUT SCH ×3 (08:23→17:38)
--- NOTE | 2018-02-17 10:35 | PCM.PN ---
- General Info Date of Service: 02/17/18 Admission Dx/Problem (Free Text): Cellulitis of Lower Extremities Pedal Edema Functional Status: Reports: Pain Controlled, Tolerating Diet, Ambulating - Review of Systems General: Reports: Weakness. Denies: Fever HEENT: Reports: No Symptoms Pulmonary: Denies: Shortness of Breath, Cough Cardiovascular: Reports: Edema. Denies: Chest Pain, Lightheadedness Gastrointestinal: Denies: Abdominal Pain, Nausea, Vomiting Genitourinary: Reports: No Symptoms Musculoskeletal: Reports: Leg Pain Skin: Reports: Other (wounds to lower extremities) Neurological: Reports: No Symptoms - Patient Data Vitals - Most Recent: Last Vital Signs Temp 98.6 F 02/17/18 08:00 Pulse 86 02/17/18 08:20 Resp 18 02/17/18 08:00 BP 196/51 H 02/17/18 08:20 Pulse Ox 94 L 02/17/18 08:00 Weight - Most Recent: 224 lb 3.362 oz I&O - Last 24 Hours: Intake & Output 02/16/18 02/17/18 02/17/18 22:59 06:59 14:59 Intake Total 50 50 Balance 50 50 Lab Results Last 24 Hours: Laboratory Results - last 24 hr 02/16/18 02/16/18 02/16/18 Range/Units 11:21 17:18 20:26 Sodium (136-145) mEq/L Potassium (3.5-5.0) mEq/L Chloride (98-106) mEq/L Carbon Dioxide (21-32) mmol/L BUN (7-18) mg/dL Creatinine (0.6-1.0) mg/dL Est Cr Clr Drug Dosing mL/min Estimated GFR (MDRD) (>=60) mL/min Glucose (75-99) mg/dL POC Glucose 199 H 234 H 259 H (75-105) mg/dl Calcium (8.4-10.1) mg/dL C-Reactive Protein (0.2-0.8) mg/dL 02/17/18 02/17/18 Range/Units 07:22 07:38 Sodium 145 (136-145) mEq/L Potassium 4.1 (3.5-5.0) mEq/L Chloride 105 (98-106) mEq/L Carbon Dioxide 30 (21-32) mmol/L BUN 63 H (7-18) mg/dL Creatinine 2.6 H* (0.6-1.0) mg/dL Est Cr Clr Drug Dosing 11.98 mL/min Estimated GFR (MDRD) 18 L (>=60) mL/min Glucose 144 H (75-99) mg/dL POC Glucose 142 H (75-105) mg/dl Calcium 8.5 (8.4-10.1) mg/dL C-Reactive Protein 3.1 H (0.2-0.8) mg/dL Attila Results Last 24 Hours: Microbiology 02/15/18 15:15 Wound Culture - Final Ankle, Left Staphylococcus Aureus Pseudomonas Aeruginosa Med Orders - Current: Current Medications Acetaminophen (Tylenol) 650 mg PO Q4H PRN PRN Reason: Pain (Mild 1-3)/fever Last Admin: 02/17/18 00:19 Dose: 650 mg Allopurinol (Zyloprim) 100 mg PO DAILY [facility] Last Admin: 02/17/18 08:21 Dose: 100 mg Aspirin (Aspirin) 81 mg PO DAILY [facility] Last Admin: 02/17/18 08:21 Dose: 81 mg Bupropion HCl (Wellbutrin Xl) 150 mg PO DAILY [facility] Last Admin: 02/17/18 08:20 Dose: 150 mg Cholecalciferol (Vitamin D3) 2,000 units PO DAILY [facility] Last Admin: 02/17/18 08:20 Dose: 2,000 units Clopidogrel Bisulfate (Plavix) 75 mg PO DAILY [facility] Last Admin: 02/17/18 08:20 Dose: 75 mg Doxazosin Mesylate (Cardura) 2 mg PO BEDTIME [facility] Last Admin: 02/16/18 19:50 Dose: 2 mg Enoxaparin Sodium (Lovenox) 30 mg SUBCUT Q24H [facility] Last Admin: 02/16/18 11:38 Dose: 30 mg Furosemide (Lasix) 40 mg IVPUSH 0800,1600 [facility] Last Admin: 02/17/18 08:21 Dose: 40 mg Hydralazine HCl (Apresoline) 100 mg PO BID [facility] Last Admin: 02/17/18 08:20 Dose: 100 mg Levofloxacin/Dextrose 250 mg/ (Premix) 50 mls @ 50 mls/hr IV Q24H [facility] Insulin Aspart (Novolog) 0 unit SUBCUT TIDMEALS [facility]; Protocol Last Admin: 02/17/18 08:23 Dose: Not Given Insulin Detemir (Levemir) 25 unit SUBCUT BEDTIME [facility] Last Admin: 02/16/18 20:38 Dose: 25 units Isosorbide Mononitrate (Imdur) 30 mg PO DAILY [facility] Last Admin: 02/17/18 08:21 Dose: 30 mg Latanoprost (Xalatan 0.005% Ophth Soln) 0 ml EYERT BEDTIME [facility] Last Admin: 02/16/18 20:38 Dose: 1 drop Metoprolol Tartrate (Lopressor) 25 mg PO BID [facility] Last Admin: 02/17/18 08:20 Dose: 25 mg Brimonidine/Timolol [Combigan] 0.2%/0.5% Ophth Own Med 1 drop EYERT TID [facility] Last Admin: 02/17/18 08:22 Dose: 1 drop Cyclopentolate 1% (Ophth Own Med ) 1 drop EYERT TID [facility] Last Admin: 02/17/18 08:22 Dose: 1 drop Ondansetron HCl (Zofran Odt) 4 mg PO Q4H PRN PRN Reason: nausea, able to take PO Polyethylene Glycol (Miralax) 17 gm PO DAILY [facility] Last Admin: 02/17/18 08:21 Dose: 17 gm Potassium Chloride (Klor-Con 10) 20 meq PO BID [facility] Last Admin: 02/17/18 08:20 Dose: 20 meq Prednisolone Acetate (Pred Forte 1% Ophth Susp) 0 ml EYERT TID [facility] Last Admin: 02/17/18 08:23 Dose: 1 drop Pregabalin (Lyrica) 50 mg PO BEDTIME [facility] Last Admin: 02/16/18 19:50 Dose: 50 mg Senna/Docusate Sodium (Senna Plus) 1 tab PO BEDTIME [facility] Last Admin: 02/16/18 19:51 Dose: 1 tab Simvastatin (Zocor) 20 mg PO BEDTIME [facility] Last Admin: 02/16/18 19:51 Dose: 20 mg Sodium Chloride (Saline Flush) 10 ml FLUSH ASDIRECTED PRN PRN Reason: Keep Vein Open Discontinued Medications Clindamycin Phosphate 300 mg/ (Premix) 50 mls @ 100 mls/hr IV Q6H [facility] Last Admin: 02/17/18 05:38 Dose: 100 mls/hr Non-Formulary Medication (Acetaminophen [Tylenol Arthritis]) 650 mg PO BID [facility] Last Admin: 02/16/18 11:30 Dose: Not Given - Exam General: Alert, Oriented HEENT: Mucous Membr. Moist/[place] Neck: Supple Lungs: Clear to Auscultation, Normal Respiratory Effort Cardiovascular: Regular Rate, Regular Rhythm GI/Abdominal Exam: Normal Bowel Sounds, Soft, Non-Tender Extremities: Pedal Edema (2+ but has improved while here.), Other (Unna boots intact to lower extremities) Wound/Incisions: Dressing Dry and Intact Neurological: No New Focal Deficit - Problem List & Annotations (1) Chronic kidney disease (CKD) SNOMED Code(s): 908105121 Code(s): N18.9 - CHRONIC KIDNEY DISEASE, UNSPECIFIED Status: Acute Priority: High Current Visit: Yes (2) Edema SNOMED Code(s): 348919164, [id number] Code(s): R60.9 - EDEMA, UNSPECIFIED Status: Acute Priority: High Current Visit: Yes (3) Cellulitis of lower extremity SNOMED Code(s): 003709887 Code(s): L03.119 - CELLULITIS OF UNSPECIFIED PART OF LIMB Status: Suspected Priority: High Current Visit: Yes Qualifiers: Laterality: left Qualified Code(s): L03.116 - Cellulitis of left lower limb - Problem List Review Problem List Initiated/Reviewed/Updated: Yes - My Orders Last 24 Hours: My Active Orders 02/16/18 20:00 Simvastatin [Zocor] 20 mg PO BEDTIME 02/17/18 09:45 Levofloxacin/Dextrose 5%-Water [Levaquin in D5W 250 MG/50 ML] 250 mg Premix Bag 1 bag IV Q24H 02/18/18 05:11 BASIC METABOLIC PANEL,BMP [CHEM] DAILY C-REACTIVE PROTEIN [CHEM] DAILY - Assessment Assessment:: Cellulitis of bilateral lower extremities Edema Chronic Kidney Failure. - Plan Plan:: Patient is up and resting in recliner. Has been willing to elevate her feet but she does not lay in the bed at all. Edema is improved in feet and ankle region but has more now above the level of the tom bandage to mid carvajal region. Still has redness and oozing from the open lesions. No fevers. Has been up and voiding more since IV Lasix given yesterday. Lung sounds are clear. Creatinine increased slightly to 2.8 from 2.6 yesterday. ProBNP was 1198 yesterday. WBC stable at 5.7. CRP 3.9. Will continue with IV Cleocin. Elevate legs. Suggest UNNA boots or higher wraps with the tom bandages. Encourage ambulation. Repeat labs in am. 02-17-2018 Patient up in recliner. Does elevate legs after meals. Edema is improved to 2+ . Unna boots intact to lower extremities. Patient complaining of the itch related to them. Labs stable, creatinine 2.6 today. Wound cultures do show staph aureus and pseudomonas, all sensitive to Levaquin. Will initiate Levaquin at 250 mg daily. Discussed with patient discharge plan. Daughter is concerned about home safety as patient is noncompliant with elevating her legs, eating properly, etc. Does spend much of her day sitting at the kitchen table with legs dangling which leads to ongoing problems with her legs. Patient aware of these concerns but is adamant that with her caregiver and friends, she is able to yet remain at home. Will continue with IV antibiotics and PT and see how she progresses over the next few days.
[2018-02-17] MEDS: Enoxaparin 30 MG/0.3 ML Syringe SUBCUT SCH (11:43)
[2018-02-17] MEDS: Levofloxacin/Dextrose 5%-Water 250 MG in Premix Bag 1 BAG IV SCH (11:43)
[2018-02-17] MEDS: Pregabalin 50 MG Cap PO SCH (20:32)
[2018-02-17] MEDS: Doxazosin 2 MG Tab PO SCH (20:33)
[2018-02-17] MEDS: Simvastatin 20 MG Tab PO SCH (20:33)
[2018-02-17] MEDS: Insulin Detemir 100 Units/ML 3 ML Pen SUBCUT SCH (20:36)
[2018-02-17] MEDS: Latanoprost 0.005% Ophth Soln 2.5 ML Bottle EYERT SCH (20:37)
[2018-02-18] MEDS: Furosemide 40 MG/4 ML VIAL IVPUSH SCH (08:06)
[2018-02-18 08:07] VITALS: BP 189/74
[2018-02-18] MEDS: Potassium Chloride 10 MEQ Tab.ER PO SCH (08:07)
[2018-02-18] MEDS: Clopidogrel 75 MG Tab PO SCH (08:07)
[2018-02-18] MEDS: Isosorbide Mononitrate 30 MG Tab.ER PO SCH (08:07)
[2018-02-18] MEDS: buPROPion 150 MG Tab.ER PO SCH (08:08)
[2018-02-18] MEDS: Allopurinol 100 MG Tab PO SCH (08:08)
[2018-02-18] MEDS: hydrALAZINE 25 MG Tab PO SCH (08:08)
[2018-02-18] MEDS: Polyethylene Glycol 3350 Powder 17 GM Packet PO SCH (08:08)
[2018-02-18] MEDS: Metoprolol Tartrate 25 MG Tab PO SCH (08:08)
[2018-02-18] MEDS: Aspirin 81 MG Tab.Chew PO SCH (08:08)
[2018-02-18] MEDS: Cholecalciferol (Vitamin D3) 1,000 Unit Tab PO SCH (08:08)
[2018-02-18] MEDS: BRIMONIDINE EYERT SCH (08:09)
[2018-02-18] MEDS: TIMOLOL EYERT SCH (08:09)
[2018-02-18] MEDS: CYCLOPENTOLATE 1% EYERT SCH (08:09)
[2018-02-18] MEDS: Insulin Aspart 100 Units/ML 3 ML Pen SUBCUT SCH ×2 (08:15→11:57)
[2018-02-18] MEDS: prednisoLONE Acetate 1% Ophth Susp 5 ML Bottle EYERT SCH (08:16)
[2018-02-18] MEDS: Levofloxacin/Dextrose 5%-Water 250 MG in Premix Bag 1 BAG IV SCH (11:56)
[2018-02-18] MEDS: Enoxaparin 30 MG/0.3 ML Syringe SUBCUT SCH (11:57)
--- NOTE | 2018-02-18 14:51 | PCM.DCSUM1 ---
Discharge Summary - Hospital Course Free Text/Narrative:: Patient admitted from clinic with cellulitis in her lower extremities. She has ongoing issues with lower extremity edema. Does not use Silvino hose or elevate her legs, sleeps in a recliner. Had noted increased issues with redness as of late and over the last 2 weeks, despite wrapping with tom bandages, has noted blisters forming and drainage. Caregiver with her changes the bandages every other day. Had not noted any odor but did note warmth and redness. Odor was noted in clinic. Admitted for IV antibiotics. Wound culture obtained. Labs ordered. Diagnosis: Stroke: No Modified Powell Scale: No Symptoms at All Modified Kee Scale Score: 0 - Discharge Data Discharge Date: 02/18/18 Discharge Disposition: DC/Tfer W/I Hosp To [place] [id number] Condition: Good - Discharge Diagnosis/Problem(s) (1) Chronic kidney disease (CKD) SNOMED Code(s): 147273347 ICD Code: N18.9 - CHRONIC KIDNEY DISEASE, UNSPECIFIED Status: Acute Priority: High (2) Edema SNOMED Code(s): 364228724, 016242254 ICD Code: R60.9 - EDEMA, UNSPECIFIED Status: Acute Priority: High (3) Cellulitis of lower extremity SNOMED Code(s): 173016787 ICD Code: L03.119 - CELLULITIS OF UNSPECIFIED PART OF LIMB Status: Suspected Priority: High Qualifiers: Laterality: left Qualified Code(s): L03.116 - Cellulitis of left lower limb - Patient Summary/Data Complications: none Consults: Consultations 02/15/18 11:14 PT Evaluation and Treatment [CONS] Routine Hospital Course: Patient admitted for cellulitis of her legs. Has had increase of swelling again of her legs with blisters that had formed with progression to lesions and infection. Patient is noncompliant in regards to elevating her legs at home and has had manager long term care issue with this. Wound culture of her legs did grow staph aureus and pseudomonas. She has had improvement of the swelling, down 4# . Remained afebrile. Blood pressure has been elevated, Metoprolol increased to 50mg BID, Cardura stopped. Transfer to swing bed for ongoing IV Levaquin for infection. PT for strengthening and wound care. - Patient Instructions Diet: Diabetic Diet Activity: As Tolerated - Discharge Plan *PRESCRIPTION DRUG MONITORING PROGRAM REVIEWED*: No *COPY OF PRESCRIPTION DRUG MONITORING REPORT IN PATIENT JUAN: No Home Medications: Home Meds Aspirin 81 tab PO DAILY 12/29/14 [History] Clopidogrel Bisulfate [Clopidogrel] 1 tab PO DAILY 12/29/14 [History] Febuxostat [Uloric] 80 mg PO DAILY 12/29/14 [History] Furosemide 80 mg PO QAM 12/29/14 [History] Lovastatin 1 tab PO DAILY 12/29/14 [History] Lutein [Natural Lutein] 2 tab PO DAILY 12/29/14 [History] Metoprolol Tartrate [Lopressor] 1 tab PO BID 12/29/14 [History] Vitamin B Complex 1 tab PO DAILY 12/29/14 [History] buPROPion [buPROPion XL] 1 tab PO DAILY 12/29/14 [History] Pregabalin [Lyrica] 50 mg PO BEDTIME 01/09/15 [History] Acetaminophen [Tylenol Arthritis] 650 mg PO BID 04/28/17 [History] Cholecalciferol (Vitamin D3) [Vitamin D3] 2,000 unit PO DAILY 04/28/17 [History] Doxazosin [Cardura] 2 mg PO BEDTIME 04/28/17 [History] Potassium Chloride 20 meq PO BID #60 04/28/17 [Rx] Sennosides/Docusate Sodium [Stool Softener-Laxative Tablet] 1 each PO BEDTIME [History] hydrALAZINE HCl [Hydralazine HCl] 100 mg PO BID 04/28/17 [History] Brimonidine/Timolol [Combigan 0.2%/0.5% Ophth Soln] 1 drop EYERT TID 02/15/18 [ History] Cyclopentolate HCl 1 drop EYERT TID 02/15/18 [History] Furosemide 40 mg PO 1200 02/15/18 [History] Insulin Aspart [NovoLOG] 0 unit SQ WITHMEALSANDBED 02/15/18 [History] Insulin Glargine,Hum.Rec.Anlog [Basaglar Kwikpen U-100] 25 units SQ BEDTIME [History] Isosorbide Mononitrate [Isosorbide Mononitrate ER] 30 mg PO DAILY 02/15/18 [ History] Polyethylene Glycol 3350 [MiraLAX] 1 dose PO DAILY 02/15/18 [History] Prednisolone Acetate/Pf [Prednisolone Acet 1% Eye Drop] 1 drop EYERT TID [History] Travoprost [Travatan Z] 1 drop EYERT BEDTIME 02/15/18 [History] - Discharge Summary/Plan Comment DC Time >30 min.: No Discharge Summary/Plan Comment: Transfer to swing bed. Ongoing IV antiboitics. PT for wound care/ strengthening. - General Info Date of Service: 02/18/18 Admission Dx/Problem (Free Text: Cellulitis of Lower Extremities Pedal Edema Functional Status: Reports: Pain Controlled, Tolerating Diet, Ambulating - Review of Systems General: Reports: Weakness. Denies: Fever HEENT: Reports: No Symptoms Pulmonary: Denies: Shortness of Breath, Cough Cardiovascular: Reports: Edema. Denies: Chest Pain, Lightheadedness Gastrointestinal: Denies: Abdominal Pain, Nausea, Vomiting Musculoskeletal: Reports: Leg Pain Skin: Reports: Other (wounds to lower leg) Neurological: Reports: No Symptoms - Patient Data Vitals - Most Recent: Last Vital Signs Temp 97.4 F 02/18/18 07:54 Pulse 91 02/18/18 08:08 Resp 20 02/18/18 07:54 BP 189/74 H 02/18/18 08:08 Pulse Ox 93 L 02/18/18 07:54 Weight - Most Recent: 221 lb 5.506 oz Lab Results - Last 24 hrs: Laboratory Results - last 24 hr 02/17/18 02/17/18 02/18/18 Range/Units 17:25 20:30 05:11 Sodium 142 (136-145) mEq/L Potassium 4.1 (3.5-5.0) mEq/L Chloride 105 (98-106) mEq/L Carbon Dioxide 31 (21-32) mmol/L BUN 58 H (7-18) mg/dL Creatinine 2.5 H (0.6-1.0) mg/dL Est Cr Clr Drug Dosing 12.46 mL/min Estimated GFR (MDRD) 18 L (>=60) mL/min Glucose 244 H D (75-99) mg/dL POC Glucose 227 H 232 H (75-105) mg/dl Calcium 8.6 (8.4-10.1) mg/dL C-Reactive Protein 2.4 H (0.2-0.8) mg/dL 02/18/18 02/18/18 Range/Units 07:48 11:36 Sodium (136-145) mEq/L Potassium (3.5-5.0) mEq/L Chloride (98-106) mEq/L Carbon Dioxide (21-32) mmol/L BUN (7-18) mg/dL Creatinine (0.6-1.0) mg/dL Est Cr Clr Drug Dosing mL/min Estimated GFR (MDRD) (>=60) mL/min Glucose (75-99) mg/dL POC Glucose 232 H 287 H (75-105) mg/dl Calcium (8.4-10.1) mg/dL C-Reactive Protein (0.2-0.8) mg/dL Med Orders - Current: Current Medications Discontinued Medications Acetaminophen (Tylenol) 650 mg PO Q4H PRN PRN Reason: Pain (Mild 1-3)/fever Last Admin: 02/17/18 20:35 Dose: 650 mg Allopurinol (Zyloprim) 100 mg PO DAILY [facility] Last Admin: 02/18/18 08:08 Dose: 100 mg Aspirin (Aspirin) 81 mg PO DAILY [facility] Last Admin: 02/18/18 08:08 Dose: 81 mg Bupropion HCl (Wellbutrin Xl) 150 mg PO DAILY [facility] Last Admin: 02/18/18 08:08 Dose: 150 mg Cholecalciferol (Vitamin D3) 2,000 units PO DAILY [facility] Last Admin: 02/18/18 08:08 Dose: 2,000 units Clopidogrel Bisulfate (Plavix) 75 mg PO DAILY [facility] Last Admin: 02/18/18 08:07 Dose: 75 mg Doxazosin Mesylate (Cardura) 2 mg PO BEDTIME [facility] Last Admin: 02/17/18 20:33 Dose: 2 mg Enoxaparin Sodium (Lovenox) 30 mg SUBCUT Q24H [facility] Last Admin: 02/18/18 11:57 Dose: 30 mg Furosemide (Lasix) 40 mg IVPUSH 0800,1600 [facility] Last Admin: 02/18/18 08:06 Dose: 40 mg Hydralazine HCl (Apresoline) 100 mg PO BID [facility] Last Admin: 02/18/18 08:08 Dose: 100 mg Clindamycin Phosphate 300 mg/ (Premix) 50 mls @ 100 mls/hr IV Q6H [facility] Last Admin: 02/17/18 05:38 Dose: 100 mls/hr Levofloxacin/Dextrose 250 mg/ (Premix) 50 mls @ 50 mls/hr IV Q24H [facility] Last Admin: 02/18/18 11:56 Dose: 50 mls/hr Insulin Aspart (Novolog) 0 unit SUBCUT TIDMEALS [facility]; Protocol Last Admin: 02/18/18 11:57 Dose: 6 units Insulin Detemir (Levemir) 25 unit SUBCUT BEDTIME [facility] Last Admin: 02/17/18 20:36 Dose: 25 units Isosorbide Mononitrate (Imdur) 30 mg PO DAILY [facility] Last Admin: 02/18/18 08:07 Dose: 30 mg Latanoprost (Xalatan 0.005% Ophth Soln) 0 ml EYERT BEDTIME [facility] Last Admin: 02/17/18 20:37 Dose: 1 drop Metoprolol Tartrate (Lopressor) 25 mg PO BID [facility] Last Admin: 02/18/18 08:08 Dose: 25 mg Non-Formulary Medication (Acetaminophen [Tylenol Arthritis]) 650 mg PO BID [facility] Last Admin: 02/16/18 11:30 Dose: Not Given Brimonidine/Timolol [Combigan] 0.2%/0.5% Ophth Own Med 1 drop EYERT TID [facility] Last Admin: 02/18/18 08:09 Dose: 1 drop Cyclopentolate 1% (Ophth Own Med ) 1 drop EYERT TID [facility] Last Admin: 02/18/18 08:09 Dose: 1 drop Ondansetron HCl (Zofran Odt) 4 mg PO Q4H PRN PRN Reason: nausea, able to take PO Polyethylene Glycol (Miralax) 17 gm PO DAILY [facility] Last Admin: 02/18/18 08:08 Dose: 17 gm Potassium Chloride (Klor-Con 10) 20 meq PO BID [facility] Last Admin: 02/18/18 08:07 Dose: 20 meq Prednisolone Acetate (Pred Forte 1% Ophth Susp) 0 ml EYERT TID [facility] Last Admin: 02/18/18 08:16 Dose: 1 drop Pregabalin (Lyrica) 50 mg PO BEDTIME [facility] Last Admin: 02/17/18 20:32 Dose: 50 mg Senna/Docusate Sodium (Senna Plus) 1 tab PO BEDTIME [facility] Last Admin: 02/17/18 20:33 Dose: 1 tab Simvastatin (Zocor) 20 mg PO BEDTIME [facility] Last Admin: 02/17/18 20:33 Dose: 20 mg Sodium Chloride (Saline Flush) 10 ml FLUSH ASDIRECTED PRN PRN Reason: Keep Vein Open - Exam General: Reports: Alert, Oriented HEENT: Reports: Mucous Membr. Moist/[place] Neck: Reports: Supple Lungs: Reports: Clear to Auscultation, Normal Respiratory Effort Cardiovascular: Reports: Regular Rate, Regular Rhythm GI/Abdominal Exam: Normal Bowel Sounds, Soft Extremities: Pedal Edema (2-3+) Skin: Reports: Warm Wound/Incisions: Reports: Dressing Dry and Intact (Unna boots intact to lower ) Neurological: Reports: No New Focal Deficit Psy/Mental Status: Reports: Alert
== END 2018-02-18 12:10 | disposition swing bed (61) | DRG 603 ==
LOC: CC.MS 10:57
PROVIDERS: ADMIT Physician Assistant Medical; ATTEND Family Medicine
DX: L03.116 Cellulitis of left lower limb (principal); H34.11 Central retinal artery occlusion, right eye; L03.115 Cellulitis of right lower limb; N18.9 Chronic kidney disease, unspecified; E11.40 Type 2 diabetes mellitus with diabetic neuropathy, unspecified; I12.9 Hypertensive chronic kidney disease with stage 1 through stage 4 chronic kidney disease, or unspecified chronic kidney disease; E11.22 Type 2 diabetes mellitus with diabetic chronic kidney disease; B95.61 Methicillin susceptible Staphylococcus aureus infection as the cause of diseases classified elsewhere; B96.5 Pseudomonas (aeruginosa) (mallei) (pseudomallei) as the cause of diseases classified elsewhere; Z91.19 Patient's noncompliance with other medical treatment and regimen; F41.9 Anxiety disorder, unspecified; M19.90 Unspecified osteoarthritis, unspecified site; I65.29 Occlusion and stenosis of unspecified carotid artery; F32.9 Major depressive disorder, single episode, unspecified; Z79.01 Long term (current) use of anticoagulants; Z88.8 Allergy status to other drugs, medicaments and biological substances; Z88.0 Allergy status to penicillin; Z79.82 Long term (current) use of aspirin; Z79.899 Other long term (current) drug therapy; Z79.4 Long term (current) use of insulin
CPT/HCPCS: 29580-GP; 36415; 80048; 82962; 83880; 85025; 86140; 87070; 87077; 87186; 97161-GP; A9270-GY; J1650; J1815-GY; J1940; J1956; J3490

== ENCOUNTER 2018-02-18 12:34 | Inpatient (IN) | payer MEDICARE, BC ==
[2018-02-18] MEDS ORDERED: Ondansetron 4 MG Tab.DIS PO PRN (13:04)
[2018-02-18] MEDS ORDERED: Sodium Chloride 0.9% 10 ML Syringe FLUSH PRN ×2 (13:04)
[2018-02-18] MEDS ORDERED: Acetaminophen 325 MG Tab PO PRN (13:04)
[2018-02-18] MEDS: Insulin Aspart 100 Units/ML 3 ML Pen SUBCUT SCH ×2 (13:32→17:24)
[2018-02-18] MEDS: TIMOLOL EYERT SCH ×2 (14:53→19:41)
[2018-02-18] MEDS: BRIMONIDINE EYERT SCH ×2 (14:53→19:41)
[2018-02-18] MEDS: CYCLOPENTOLATE HCL EYERT SCH ×2 (14:53→19:41)
[2018-02-18] MEDS: prednisoLONE Acetate 1% Ophth Susp 5 ML Bottle EYERT SCH ×2 (14:54→19:36)
[2018-02-18] MEDS ORDERED: Metoprolol Tartrate 25 MG Tab PO ONE (16:05)
[2018-02-18] MEDS: Furosemide 40 MG/4 ML VIAL IVPUSH SCH (16:36)
[2018-02-18] MEDS: Potassium Chloride 10 MEQ Tab.ER PO SCH (17:24)
[2018-02-18] MEDS: hydrALAZINE 25 MG Tab PO SCH (19:33)
[2018-02-18] MEDS: Simvastatin 20 MG Tab PO SCH (19:35)
[2018-02-18] MEDS: Metoprolol Tartrate 50 MG Tab PO SCH (19:35)
[2018-02-18] MEDS: Pregabalin 50 MG Cap PO SCH (19:36)
[2018-02-18] MEDS ORDERED: Insulin Detemir 100 Units/ML 3 ML Pen SUBCUT SCH (20:00)
[2018-02-18] MEDS: Latanoprost 0.005% Ophth Soln 2.5 ML Bottle EYERT SCH (20:30)
[2018-02-19] MEDS: Furosemide 40 MG/4 ML VIAL IVPUSH SCH (07:52)
[2018-02-19] MEDS: Metoprolol Tartrate 50 MG Tab PO SCH ×2 (07:53→19:46)
[2018-02-19] MEDS: Potassium Chloride 10 MEQ Tab.ER PO SCH ×2 (07:53→17:21)
[2018-02-19] MEDS: Clopidogrel 75 MG Tab PO SCH (07:54)
[2018-02-19] MEDS: Isosorbide Mononitrate 30 MG Tab.ER PO SCH (07:54)
[2018-02-19] MEDS: Aspirin 81 MG Tab.Chew PO SCH (07:54)
[2018-02-19] MEDS: buPROPion 150 MG Tab.ER PO SCH (07:54)
[2018-02-19] MEDS: Insulin Aspart 100 Units/ML 3 ML Pen SUBCUT SCH ×3 (07:55→17:22)
[2018-02-19] MEDS: hydrALAZINE 25 MG Tab PO SCH ×2 (07:55→19:41)
[2018-02-19] MEDS: BRIMONIDINE EYERT SCH ×3 (07:58→19:40)
[2018-02-19] MEDS: CYCLOPENTOLATE HCL EYERT SCH ×3 (07:58→19:42)
[2018-02-19] MEDS: TIMOLOL EYERT SCH ×3 (07:58→19:40)
[2018-02-19] MEDS: prednisoLONE Acetate 1% Ophth Susp 5 ML Bottle EYERT SCH ×3 (07:58→19:46)
[2018-02-19] MEDS ORDERED: Polyethylene Glycol 3350 Powder 17 GM Packet PO SCH (08:00)
[2018-02-19] MEDS ORDERED: Cholecalciferol (Vitamin D3) 1,000 Unit Tab PO SCH (08:00)
[2018-02-19] MEDS ORDERED: Allopurinol 100 MG Tab PO SCH (08:00)
[2018-02-19] MEDS ORDERED: Levofloxacin/Dextrose 5%-Water 250 MG in Premix Bag 1 BAG IV SCH (12:00)
[2018-02-19] MEDS ORDERED: Enoxaparin 30 MG/0.3 ML Syringe SUBCUT SCH (12:00)
[2018-02-19] MEDS ORDERED: Sodium Chloride 0.9% 500 ML IV SCH (17:00)
--- NOTE | 2018-02-19 17:06 | PCM.PN ---
- General Info Date of Service: 02/19/18 Admission Dx/Problem (Free Text): Cellulitis of leg Subjective Update: Patient reports she feels nauseous today. Denies any chest pain, SOB, fever or chills. Functional Status: Reports: Pain Controlled - Review of Systems General: Reports: Fatigue, Malaise HEENT: Reports: No Symptoms Pulmonary: Reports: No Symptoms Cardiovascular: Reports: No Symptoms Gastrointestinal: Reports: Decreased Appetite, Nausea Genitourinary: Reports: No Symptoms Musculoskeletal: Reports: No Symptoms Skin: Reports: No Symptoms Neurological: Reports: No Symptoms Psychiatric: Reports: No Symptoms - Patient Data Vitals - Most Recent: Last Vital Signs Temp 36.1 C 02/19/18 14:00 Pulse 77 02/19/18 14:00 Resp 20 02/19/18 14:00 BP 114/70 02/19/18 14:00 Pulse Ox 93 L 02/19/18 14:00 Weight - Most Recent: 100.6 kg Lab Results Last 24 Hours: Laboratory Results - last 24 hr 02/18/18 02/18/18 02/19/18 Range/Units 17:24 20:10 07:32 Sodium (136-145) mEq/L Potassium (3.5-5.0) mEq/L Chloride (98-106) mEq/L Carbon Dioxide (21-32) mmol/L BUN (7-18) mg/dL Creatinine (0.6-1.0) mg/dL Est Cr Clr Drug Dosing mL/min Estimated GFR (MDRD) (>=60) mL/min Glucose (75-99) mg/dL POC Glucose 246 H 333 H 247 H (75-105) mg/dl Calcium (8.4-10.1) mg/dL 02/19/18 02/19/18 Range/Units 11:46 12:45 Sodium 139 (136-145) mEq/L Potassium 4.6 (3.5-5.0) mEq/L Chloride 103 (98-106) mEq/L Carbon Dioxide 31 (21-32) mmol/L BUN 60 H (7-18) mg/dL Creatinine 2.6 H* (0.6-1.0) mg/dL Est Cr Clr Drug Dosing 11.98 mL/min Estimated GFR (MDRD) 18 L (>=60) mL/min Glucose 316 H* D (75-99) mg/dL POC Glucose 288 H (75-105) mg/dl Calcium 8.8 (8.4-10.1) mg/dL Med Orders - Current: Current Medications Acetaminophen (Tylenol) 650 mg PO Q4H PRN PRN Reason: Pain (Mild 1-3)/fever Allopurinol (Zyloprim) 100 mg PO DAILY [facility] Last Admin: 02/19/18 07:53 Dose: 100 mg Aspirin (Aspirin) 81 mg PO DAILY [facility] Last Admin: 02/19/18 07:54 Dose: 81 mg Bupropion HCl (Wellbutrin Xl) 150 mg PO DAILY [facility] Last Admin: 02/19/18 07:54 Dose: 150 mg Cholecalciferol (Vitamin D3) 2,000 units PO DAILY [facility] Last Admin: 02/19/18 07:55 Dose: 2,000 units Clopidogrel Bisulfate (Plavix) 75 mg PO DAILY [facility] Last Admin: 02/19/18 07:54 Dose: 75 mg Enoxaparin Sodium (Lovenox) 30 mg SUBCUT Q24H [facility] Last Admin: 02/19/18 12:51 Dose: 30 mg Hydralazine HCl (Apresoline) 100 mg PO BID [facility] Last Admin: 02/19/18 07:55 Dose: 100 mg Levofloxacin/Dextrose 250 mg/ (Premix) 50 mls @ 50 mls/hr IV Q24H [facility] Last Admin: 02/19/18 12:50 Dose: 50 mls/hr Sodium Chloride (Normal Saline) 500 mls @ 50 mls/hr IV ASDIRECTED [facility] Insulin Aspart (Novolog) 0 unit SUBCUT TIDMEALS [facility]; Protocol Last Admin: 02/19/18 11:49 Dose: 6 units Insulin Detemir (Levemir) 30 unit SUBCUT BEDTIME [facility] Isosorbide Mononitrate (Imdur) 30 mg PO DAILY [facility] Last Admin: 02/19/18 07:54 Dose: 30 mg Latanoprost (Xalatan 0.005% Ophth Soln) 0 ml EYERT BEDTIME [facility] Last Admin: 02/18/18 20:30 Dose: 1 drop Metoprolol Tartrate (Lopressor) 50 mg PO Q12H [facility] Last Admin: 02/19/18 07:53 Dose: 50 mg Own Med (Brimonidine /Timolol [Combigan 0 .2%/0.5% Ophth Soln] 1 Roc 1 drop EYERT TID [facility] Last Admin: 02/19/18 14:18 Dose: 1 drop Own Med ( Cyclopentolate Hcl [ Cyclopentolate Hcl] 1 Drop) 1 drop EYERT TID [facility] Last Admin: 02/19/18 14:19 Dose: 1 drop Ondansetron HCl (Zofran Odt) 4 mg PO Q4H PRN PRN Reason: nausea, able to take PO Polyethylene Glycol (Miralax) 17 gm PO DAILY [facility] Last Admin: 02/19/18 07:53 Dose: 17 gm Potassium Chloride (Klor-Con 10) 20 meq PO BIDMEALS [facility] Last Admin: 02/19/18 07:53 Dose: 20 meq Prednisolone Acetate (Pred Forte 1% Ophth Susp) 0 ml EYERT TID [facility] Last Admin: 02/19/18 14:20 Dose: 1 drop Pregabalin (Lyrica) 50 mg PO BEDTIME [facility] Last Admin: 02/18/18 19:36 Dose: 50 mg Senna/Docusate Sodium (Senna Plus) 1 tab PO BEDTIME [facility] Last Admin: 02/18/18 19:35 Dose: 1 tab Simvastatin (Zocor) 20 mg PO BEDTIME [facility] Last Admin: 02/18/18 19:35 Dose: 20 mg Sodium Chloride (Saline Flush) 10 ml FLUSH ASDIRECTED PRN PRN Reason: Keep Vein Open Sodium Chloride (Saline Flush) 10 ml FLUSH ASDIRECTED PRN PRN Reason: Keep Vein Open Discontinued Medications Furosemide (Lasix) 40 mg IVPUSH 0800,1600 [facility] Last Admin: 02/19/18 07:52 Dose: 40 mg Insulin Detemir (Levemir) 25 unit SUBCUT BEDTIME [facility] Last Admin: 02/18/18 20:31 Dose: 25 unit Metoprolol Tartrate (Lopressor) 25 mg PO ONETIME ONE Stop: 02/18/18 16:06 Last Admin: 02/18/18 16:37 Dose: 25 mg - Exam General: Alert, Oriented, Cooperative, No Acute Distress HEENT: Pupils Equal, Pupils Reactive, EOMI, Mucous Membr. Moist/[place] Neck: Supple, Trachea Midline, No JVD Lungs: Clear to Auscultation, Normal Respiratory Effort Cardiovascular: Regular Rate, Regular Rhythm GI/Abdominal Exam: Normal Bowel Sounds, Soft, Non-Tender, No Organomegaly, No Distention Extremities: Other (Has Esther boots on bilateral legs.) Skin: Warm, Dry, Intact Wound/Incisions: Other (Has bilateral Esther boots in place.) Neurological: No New Focal Deficit Psy/Mental Status: Alert, Normal Affect, Normal Mood - Problem List Review Problem List Initiated/Reviewed/Updated: Yes - My Orders Last 24 Hours: My Active Orders 02/19/18 17:00 Sodium Chloride 0.9% [Normal Saline] 500 ml IV ASDIRECTED 02/19/18 20:00 Insulin Detemir [Levemir] 30 unit SUBCUT BEDTIME - Assessment Assessment:: Nausea improved. BUN 60, creatinine 2.6 trending upward. Will discontinue Lasix for now. Give NS fluid bolus slowly. Diabetes uncontrolled, increase Levemir to 30 units qhs and monitor. - Plan Plan:: Discontinue Lasix for now. IVF 500 mL bolus slowly. DM uncontrolled blood sugars. Will increase Levemir to 30 units qhs and monitor labs. HTN improved overall. Recheck labs. Monitor patient. Cellulitis- continue current treatment and Esther boot. PT.
[2018-02-19] MEDS ORDERED: Sodium Chloride 0.9% 500 ML IV ONE (17:07)
[2018-02-19] MEDS: Pregabalin 50 MG Cap PO SCH (19:46)
[2018-02-19] MEDS: Simvastatin 20 MG Tab PO SCH (19:47)
[2018-02-19] MEDS: Latanoprost 0.005% Ophth Soln 2.5 ML Bottle EYERT SCH (19:47)
[2018-02-19] MEDS ORDERED: Insulin Detemir 100 Units/ML 3 ML Pen SUBCUT SCH (20:00)
[2018-02-20] MEDS ORDERED: Furosemide 40 MG/4 ML VIAL ONE (06:23)
[2018-02-20] MEDS ORDERED: Furosemide 40 MG/4 ML VIAL IVPUSH ONE (06:29)
[2018-02-20] MEDS: Metoprolol Tartrate 50 MG Tab PO SCH (06:47)
[2018-02-20 06:51] LABS: BICARBONATE,ARTERIAL 32.7 mm/L (22.0-26.0); O2 SATURATION ARTERIAL 99 % (95-98); PCO2 ARTERIAL 67 mm/Hg0 (35-45); PO2 ARTERIAL 151 mm/Hg (80-100)
[2018-02-20 06:53] LABS: O2 DELIVERY DEVICE NON REBR MASK
--- NOTE | 2018-02-20 07:32 | PCM.DCSUM1 ---
Discharge Summary - Hospital Course HPI Initial Comments: 82 year female was initially admitted to [facility] on 02/15/2018 for bilateral lower extremity cellulitis and has been on IV Levaquin and Lasix. Cultures indicated Stapholococcusa and pseudomonas, sensitive to Levaquin. THe patient has chronic kidney disease which seemed to worsen, so she recieved one 500 IV fluid bag on 02/19 due to worsening kidney function and Lasix 40 mg was held on the evening of 02/19/18 due to worsening kidney function. On , patient had elevated BP of 231/76 and patient seemed to have some alteration in mental status and dysarthria between 5:30 and 6:00a.m. The patient's right pupil is larger than the left, however no focal motor deficits are noted, she can lift all extremities against gravity. Right side facial droop. 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 She also became hypoxic with oxygen saturation 69% on room air. Non rebreather mask at 8 liters was applied and oxygen sats improved to 90%. Head CT is negative for acute event. ABG ph 7.30, PCO2 66, PO2 151, HCO3 32, sO2 99% on 6 liters of oxygen. Troponin is elevated at 0.33, potassium is 5.3, creatinine 2.7, BUN 60. CXR indicates cardiomegaly with questionable small pleural effusion and likely evolving interstitial edema or multifocal infiltrates. NIH stroke scale = 4, patient's Spoke to and discussed case with Dr. Cesar, hospitalist whom accepted patient at [facility]. Repeat BP 203/63, HR 95, R 20, sat on 6 liters 99%. T 99.6. Oxygen decreased to 4 liters. Transfer to [facility] to hospitalist service. ALtered mental status, R/O CVA Hypoxic respiratory failure Dysarthria Elevated troponin HTN DM Carotid artery stenosis Central retinal artery occlussion right eye Right eye blindness Edema Hyperlipidemia Arthritis Brief History: 82 year female with PMH of CKD, HTN, DM, carotid artery stenosis , central retinal artery occlussion right eye, edema, HL, anxiety whom is being treated for bilateral LE cellulitis with Levaquin. Cultures positive for stapholococcus and pseudomonas. Diagnosis: Stroke: No Modified Nubieber Scale: No Signif.Disability Despite Sympt.Able to Carry Out Usual Act./Duties Modified Kee Scale Score: 1 - Discharge Data Discharge Date: 02/20/18 Discharge Disposition: DC/Tfer to Acute Hospital 02 Condition: Stable - Discharge Diagnosis/Problem(s) (1) Acute respiratory failure with hypoxia SNOMED Code(s): 84647551, 349224626 ICD Code: J96.01 - ACUTE RESPIRATORY FAILURE WITH HYPOXIA Status: Acute Current Visit: Yes (2) Altered mental status SNOMED Code(s): 943763942 ICD Code: R41.82 - ALTERED MENTAL STATUS, UNSPECIFIED Status: Acute Current Visit: Yes (3) Stroke determined by clinical assessment SNOMED Code(s): 315396890, 565475544 ICD Code: I63.9 - CEREBRAL INFARCTION, UNSPECIFIED Status: Acute Current Visit: Yes - Patient Summary/Data Consults: Consultations 02/18/18 13:04 PT Evaluation and Treatment [CONS] Routine Labs Pending at D/C: none Hospital Course: 82 year female was initially admitted to [facility] on 02/15/2018 for bilateral lower extremity cellulitis and has been on IV Levaquin and Lasix. Cultures indicated Stapholococcusa and pseudomonas, sensitive to Levaquin. THe patient has chronic kidney disease which seemed to worsen, so she recieved one 500 IV fluid bag on 02/19 due to worsening kidney function and Lasix 40 mg was held on the evening of 02/19/18 due to worsening kidney function. On , patient had elevated BP of 231/76 and patient seemed to have some alteration in mental status and dysarthria between 5:30 and 6:00a.m. The patient's right pupil is larger than the left, however no focal motor deficits are noted, she can lift all extremities against gravity. Right side facial droop. 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 She also became hypoxic with oxygen saturation 69% on room air. Non rebreather mask at 8 liters was applied and oxygen sats improved to 90%. Head CT is negative for acute event. ABG ph 7.30, PCO2 66, PO2 151, HCO3 32, sO2 99% on 6 liters of oxygen. Troponin is elevated at 0.33, potassium is 5.3, creatinine 2.7, BUN 60. CXR indicates cardiomegaly with questionable small pleural effusion and likely evolving interstitial edema or multifocal infiltrates. NIH stroke scale = 4, patient's Spoke to and discussed case with Dr. Cesar, hospitalist whom accepted patient at [facility]. Repeat BP 203/63, HR 95, R 20, sat on 6 liters 99%. T 99.6. Oxygen decreased to 4 liters. Transfer to [facility] to hospitalist service. ALtered mental status, R/O CVA Hypoxic respiratory failure Dysarthria Elevated troponin HTN DM Carotid artery stenosis Central retinal artery occlussion right eye Right eye blindness Edema Hyperlipidemia Arthritis - Patient Instructions Diet: Heart Healthy Diet, Diabetic Diet Activity: Bedrest - Discharge Plan Home Medications: Home Meds Aspirin 81 tab PO DAILY 12/29/14 [History] Clopidogrel Bisulfate [Clopidogrel] 1 tab PO DAILY 12/29/14 [History] Febuxostat [Uloric] 80 mg PO DAILY 12/29/14 [History] Furosemide 80 mg PO QAM 12/29/14 [History] Lovastatin 1 tab PO DAILY 12/29/14 [History] Lutein [Natural Lutein] 2 tab PO DAILY 12/29/14 [History] Metoprolol Tartrate [Lopressor] 1 tab PO BID 12/29/14 [History] Vitamin B Complex 1 tab PO DAILY 12/29/14 [History] buPROPion [buPROPion XL] 1 tab PO DAILY 12/29/14 [History] Pregabalin [Lyrica] 50 mg PO BEDTIME 01/09/15 [History] Acetaminophen [Tylenol Arthritis] 650 mg PO BID 04/28/17 [History] Cholecalciferol (Vitamin D3) [Vitamin D3] 2,000 unit PO DAILY 04/28/17 [History] Doxazosin [Cardura] 2 mg PO BEDTIME 04/28/17 [History] Potassium Chloride 20 meq PO BID #60 04/28/17 [Rx] Sennosides/Docusate Sodium [Stool Softener-Laxative Tablet] 1 each PO BEDTIME [History] hydrALAZINE HCl [Hydralazine HCl] 100 mg PO BID 04/28/17 [History] Brimonidine/Timolol [Combigan 0.2%/0.5% Ophth Soln] 1 drop EYERT TID 02/15/18 [ History] Cyclopentolate HCl 1 drop EYERT TID 02/15/18 [History] Furosemide 40 mg PO 1200 02/15/18 [History] Insulin Aspart [NovoLOG] 0 unit SQ WITHMEALSANDBED 02/15/18 [History] Insulin Glargine,Hum.Rec.Anlog [Basaglar Kwikpen U-100] 25 units SQ BEDTIME [History] Isosorbide Mononitrate [Isosorbide Mononitrate ER] 30 mg PO DAILY 02/15/18 [ History] Polyethylene Glycol 3350 [MiraLAX] 1 dose PO DAILY 02/15/18 [History] Prednisolone Acetate/Pf [Prednisolone Acet 1% Eye Drop] 1 drop EYERT TID [History] Travoprost [Travatan Z] 1 drop EYERT BEDTIME 02/15/18 [History] - Discharge Summary/Plan Comment DC Time >30 min.: No - Patient Data Vitals - Most Recent: Last Vital Signs Temp 37.3 C 02/20/18 06:12 Pulse 111 H 02/20/18 06:47 Resp 20 02/20/18 06:12 BP 231/76 H 02/20/18 06:47 Pulse Ox 97 02/20/18 07:13 Weight - Most Recent: 100.6 kg Lab Results - Last 24 hrs: Laboratory Results - last 24 hr 02/19/18 02/19/18 02/19/18 Range/Units 07:32 11:46 12:45 WBC (5.0-10.0) 10^3/uL RBC (4.00-5.50) 10^6/uL Hgb (12.0-16.0) g/dL Hct (37.0-47.0) % MCV (82.0-94.0) fL MCH (27.0-32.0) pg MCHC (33.0-38.0) g/dL RDW Coeff of Elle (11.0-15.0) % Plt Count (150-400) 10^3/uL Neut % (Auto) (35-85) % Lymph % (Auto) (10-55) % Braxton % (Auto) (0-16) % Eos % (Auto) (0-5) % Baso % (Auto) (0-3) % Neut # (Auto) (1.80-7.00) 10^3/uL Lymph # (Auto) (1.00-4.80) 10^3/uL Braxton # (Auto) (0.00-0.80) 10^3/uL Eos # (Auto) (0.00-0.45) 10^3/uL Baso # (Auto) 10^3/uL PT (9.7-12.3) SEC INR (0.92-1.18) APTT (23.2-32.3) SEC ABG pH (7.35-7.45) ABG pCO2 (35-45) mm/Hg0 ABG pO2 (80-100) mm/Hg ABG HCO3 (22.0-26.0) mm/L ABG O2 Saturation (95-98) % ABG Base Excess (-2.0-3.0) O2 Delivery Device Oxygen Flow Rate Sodium 139 (136-145) mEq/L Potassium 4.6 (3.5-5.0) mEq/L Chloride 103 (98-106) mEq/L Carbon Dioxide 31 (21-32) mmol/L BUN 60 H (7-18) mg/dL Creatinine 2.6 H* (0.6-1.0) mg/dL Est Cr Clr Drug Dosing 11.98 mL/min Estimated GFR (MDRD) 18 L (>=60) mL/min Glucose 316 H* D (75-99) mg/dL POC Glucose 247 H 288 H (75-105) mg/dl Calcium 8.8 (8.4-10.1) mg/dL Total Bilirubin (0.0-1.0) mg/dL AST (15-37) U/L ALT (12-78) U/L Alkaline Phosphatase (46-116) U/L Troponin I (0.00-0.06) ng/mL Total Protein (6.4-8.2) g/dL Albumin (3.4-5.0) g/dL 02/19/18 02/19/18 02/20/18 Range/Units 17:14 19:42 06:40 WBC 9.8 (5.0-10.0) 10^3/uL RBC 3.53 L (4.00-5.50) 10^6/uL Hgb 10.8 L (12.0-16.0) g/dL Hct 35.6 L (37.0-47.0) % MCV 100.8 H (82.0-94.0) fL MCH 30.6 (27.0-32.0) pg MCHC 30.3 L (33.0-38.0) g/dL RDW Coeff of Elle 13.7 (11.0-15.0) % Plt Count 203 (150-400) 10^3/uL Neut % (Auto) 79.9 (35-85) % Lymph % (Auto) 12.4 (10-55) % Braxton % (Auto) 6.4 (0-16) % Eos % (Auto) 0.9 (0-5) % Baso % (Auto) 0.4 (0-3) % Neut # (Auto) 7.82 H (1.80-7.00) 10^3/uL Lymph # (Auto) 1.21 (1.00-4.80) 10^3/uL Braxton # (Auto) 0.63 (0.00-0.80) 10^3/uL Eos # (Auto) 0.09 (0.00-0.45) 10^3/uL Baso # (Auto) 0.04 10^3/uL PT (9.7-12.3) SEC INR (0.92-1.18) APTT (23.2-32.3) SEC ABG pH (7.35-7.45) ABG pCO2 (35-45) mm/Hg0 ABG pO2 (80-100) mm/Hg ABG HCO3 (22.0-26.0) mm/L ABG O2 Saturation (95-98) % ABG Base Excess (-2.0-3.0) O2 Delivery Device Oxygen Flow Rate Sodium (136-145) mEq/L Potassium (3.5-5.0) mEq/L Chloride (98-106) mEq/L Carbon Dioxide (21-32) mmol/L BUN (7-18) mg/dL Creatinine (0.6-1.0) mg/dL Est Cr Clr Drug Dosing mL/min Estimated GFR (MDRD) (>=60) mL/min Glucose (75-99) mg/dL POC Glucose 234 H 283 H (75-105) mg/dl Calcium (8.4-10.1) mg/dL Total Bilirubin (0.0-1.0) mg/dL AST (15-37) U/L ALT (12-78) U/L Alkaline Phosphatase (46-116) U/L Troponin I (0.00-0.06) ng/mL Total Protein (6.4-8.2) g/dL Albumin (3.4-5.0) g/dL 02/20/18 02/20/18 02/20/18 Range/Units 06:40 06:40 06:43 WBC (5.0-10.0) 10^3/uL RBC (4.00-5.50) 10^6/uL Hgb (12.0-16.0) g/dL Hct (37.0-47.0) % MCV (82.0-94.0) fL MCH (27.0-32.0) pg MCHC (33.0-38.0) g/dL RDW Coeff of Elle (11.0-15.0) % Plt Count (150-400) 10^3/uL Neut % (Auto) (35-85) % Lymph % (Auto) (10-55) % Braxton % (Auto) (0-16) % Eos % (Auto) (0-5) % Baso % (Auto) (0-3) % Neut # (Auto) (1.80-7.00) 10^3/uL Lymph # (Auto) (1.00-4.80) 10^3/uL Braxton # (Auto) (0.00-0.80) 10^3/uL Eos # (Auto) (0.00-0.45) 10^3/uL Baso # (Auto) 10^3/uL PT 10.0 (9.7-12.3) SEC INR 0.96 (0.92-1.18) APTT 24.4 (23.2-32.3) SEC ABG pH 7.30 L (7.35-7.45) ABG pCO2 67 H (35-45) mm/Hg0 ABG pO2 151 H (80-100) mm/Hg ABG HCO3 32.7 H (22.0-26.0) mm/L ABG O2 Saturation 99 H (95-98) % ABG Base Excess 6.0 H (-2.0-3.0) O2 Delivery Device Non rebr mask Oxygen Flow Rate 4.0 Sodium 138 (136-145) mEq/L Potassium 5.3 H (3.5-5.0) mEq/L Chloride 103 (98-106) mEq/L Carbon Dioxide 32 (21-32) mmol/L BUN 60 H (7-18) mg/dL Creatinine 2.7 H* (0.6-1.0) mg/dL Est Cr Clr Drug Dosing 11.54 mL/min Estimated GFR (MDRD) 17 L (>=60) mL/min Glucose 277 H (75-99) mg/dL POC Glucose (75-105) mg/dl Calcium 8.8 (8.4-10.1) mg/dL Total Bilirubin 0.4 (0.0-1.0) mg/dL AST 14 L (15-37) U/L ALT 18 (12-78) U/L Alkaline Phosphatase 133 H (46-116) U/L Troponin I 0.334 H (0.00-0.06) ng/mL Total Protein 7.2 (6.4-8.2) g/dL Albumin 3.0 L (3.4-5.0) g/dL Med Orders - Current: Current Medications Acetaminophen (Tylenol) 650 mg PO Q4H PRN PRN Reason: Pain (Mild 1-3)/fever Allopurinol (Zyloprim) 100 mg PO DAILY [facility] Last Admin: 02/19/18 07:53 Dose: 100 mg Aspirin (Aspirin) 81 mg PO DAILY [facility] Last Admin: 02/19/18 07:54 Dose: 81 mg Bupropion HCl (Wellbutrin Xl) 150 mg PO DAILY [facility] Last Admin: 02/19/18 07:54 Dose: 150 mg Cholecalciferol (Vitamin D3) 2,000 units PO DAILY [facility] Last Admin: 02/19/18 07:55 Dose: 2,000 units Clopidogrel Bisulfate (Plavix) 75 mg PO DAILY [facility] Last Admin: 02/19/18 07:54 Dose: 75 mg Enoxaparin Sodium (Lovenox) 30 mg SUBCUT Q24H [facility] Last Admin: 02/19/18 12:51 Dose: 30 mg Hydralazine HCl (Apresoline) 100 mg PO BID [facility] Last Admin: 02/19/18 19:41 Dose: 100 mg Levofloxacin/Dextrose 250 mg/ (Premix) 50 mls @ 50 mls/hr IV Q24H [facility] Last Admin: 02/19/18 12:50 Dose: 50 mls/hr Insulin Aspart (Novolog) 0 unit SUBCUT TIDMEALS [facility]; Protocol Last Admin: 02/19/18 17:22 Dose: 4 units Insulin Detemir (Levemir) 30 unit SUBCUT BEDTIME [facility] Last Admin: 02/19/18 19:44 Dose: 30 unit Isosorbide Mononitrate (Imdur) 30 mg PO DAILY [facility] Last Admin: 02/19/18 07:54 Dose: 30 mg Latanoprost (Xalatan 0.005% Ophth Soln) 0 ml EYERT BEDTIME [facility] Last Admin: 02/19/18 19:47 Dose: 1 drop Metoprolol Tartrate (Lopressor) 50 mg PO Q12H [facility] Last Admin: 02/20/18 06:47 Dose: 50 mg Own Med (Brimonidine /Timolol [Combigan 0 .2%/0.5% Ophth Soln] 1 Roc 1 drop EYERT TID [facility] Last Admin: 02/19/18 19:40 Dose: 1 drop Own Med ( Cyclopentolate Hcl [ Cyclopentolate Hcl] 1 Drop) 1 drop EYERT TID [facility] Last Admin: 02/19/18 19:42 Dose: 1 drop Ondansetron HCl (Zofran Odt) 4 mg PO Q4H PRN PRN Reason: nausea, able to take PO Last Admin: 02/19/18 19:38 Dose: 4 mg Polyethylene Glycol (Miralax) 17 gm PO DAILY [facility] Last Admin: 02/19/18 07:53 Dose: 17 gm Potassium Chloride (Klor-Con 10) 20 meq PO BIDMEALS [facility] Last Admin: 02/19/18 17:21 Dose: 20 meq Prednisolone Acetate (Pred Forte 1% Ophth Susp) 0 ml EYERT TID [facility] Last Admin: 02/19/18 19:46 Dose: 1 drop Pregabalin (Lyrica) 50 mg PO BEDTIME [facility] Last Admin: 02/19/18 19:46 Dose: 50 mg Senna/Docusate Sodium (Senna Plus) 1 tab PO BEDTIME [facility] Last Admin: 02/19/18 19:43 Dose: Not Given Simvastatin (Zocor) 20 mg PO BEDTIME [facility] Last Admin: 02/19/18 19:47 Dose: 20 mg Sodium Chloride (Saline Flush) 10 ml FLUSH ASDIRECTED PRN PRN Reason: Keep Vein Open Sodium Chloride (Saline Flush) 10 ml FLUSH ASDIRECTED PRN PRN Reason: Keep Vein Open Discontinued Medications Furosemide (Lasix) 40 mg IVPUSH 0800,1600 [facility] Last Admin: 02/19/18 07:52 Dose: 40 mg Furosemide (Lasix) Confirm Administered Dose 40 mg .ROUTE .STK-MED ONE Stop: 02/20/18 06:24 Last Admin: 02/20/18 07:09 Dose: Not Given Furosemide (Lasix) 40 mg IVPUSH ONETIME ONE Stop: 02/20/18 06:30 Last Admin: 02/20/18 06:23 Dose: 40 mg Sodium Chloride (Normal Saline) 500 mls @ 50 mls/hr IV ASDIRECTED [facility] Sodium Chloride (Normal Saline) 500 mls @ 50 mls/hr IV ONETIME ONE Stop: 02/20/18 03:06 Last Admin: 02/19/18 17:19 Dose: 50 mls/hr Insulin Detemir (Levemir) 25 unit SUBCUT BEDTIME [facility] Last Admin: 02/18/18 20:31 Dose: 25 unit Metoprolol Tartrate (Lopressor) 25 mg PO ONETIME ONE Stop: 02/18/18 16:06 Last Admin: 02/18/18 16:37 Dose: 25 mg
[2018-02-20 07:41] VITALS: BP 203/63
[2018-02-20] MEDS: Aspirin 81 MG Tab.Chew PO SCH (07:45)
[2018-02-20] MEDS: Clopidogrel 75 MG Tab PO SCH (07:45)
[2018-02-20] MEDS: hydrALAZINE 25 MG Tab PO SCH (07:46)
[2018-02-20] MEDS: buPROPion 150 MG Tab.ER PO SCH (07:46)
[2018-02-20] MEDS: Isosorbide Mononitrate 30 MG Tab.ER PO SCH (07:46)
== END 2018-02-20 08:25 | DRG 602 ==
LOC: CC.MS 12:34
PROVIDERS: ADMIT Family Medicine; ATTEND Family Medicine
DX: L03.116 Cellulitis of left lower limb (principal); I63.9 Cerebral infarction, unspecified; J96.01 Acute respiratory failure with hypoxia; H34.11 Central retinal artery occlusion, right eye; L03.115 Cellulitis of right lower limb; E11.65 Type 2 diabetes mellitus with hyperglycemia; B95.61 Methicillin susceptible Staphylococcus aureus infection as the cause of diseases classified elsewhere; B96.5 Pseudomonas (aeruginosa) (mallei) (pseudomallei) as the cause of diseases classified elsewhere; I65.29 Occlusion and stenosis of unspecified carotid artery; H54.61 Unqualified visual loss, right eye, normal vision left eye; I12.9 Hypertensive chronic kidney disease with stage 1 through stage 4 chronic kidney disease, or unspecified chronic kidney disease; N18.9 Chronic kidney disease, unspecified; E78.5 Hyperlipidemia, unspecified; M19.90 Unspecified osteoarthritis, unspecified site; E11.22 Type 2 diabetes mellitus with diabetic chronic kidney disease; F41.9 Anxiety disorder, unspecified; Z91.19 Patient's noncompliance with other medical treatment and regimen; Z79.899 Other long term (current) drug therapy; Z79.82 Long term (current) use of aspirin; Z79.4 Long term (current) use of insulin
CPT/HCPCS: 29580-GP; 36415; 36600; 70450; 71045; 80048; 80053; 82803; 82962; 84484; 85025; 85610; 85730; 93005; A9270-GY; J1650; J1940; J1956; J7040